=== PATIENT | female | born 1955 | race Caucasian/White ===

== ENCOUNTER 2020-04-30 10:41 | Outpatient (REF) | payer BC, SELFPAY ==
[2020-04-30 14:16] LABS: Hematocrit 42.5 % (37-47); Hemoglobin 13.5 g/dl (12.0-16.0); Mean Corpuscular HGB Conc 31.8 g/dl (31.0-35.0); Mean Corpuscular Hemoglobin 30.2 pg (27.0-33.0); Mean Corpuscular Volume 95.1 fL (80-98); Mean Platelet Volume 9.6 fL (9.4-12.3); Platelet Count 380 X10*3/uL (160-400); Red Blood Count 4.47 X10*6/uL (4.20-5.50); Red Cell Distribution Width 13.2 % (11.0-16.0); White Blood Count 6.7 X10*3/uL (4.8-10.8)
[2020-04-30 14:27] LABS: Glucose Urine UA NEG (NEG); Leukocyte Esterase Urine NEG (NEG); Nitrite Urine NEG (NEG); Specific Gravity - Urine <= 1.005 (1.005-1.025); Urine Blood NEG (NEG); Urine Ketones NEG (NEG); Urine Protein NEG (NEG-TRACE)
[2020-04-30 14:32] LABS: Appearance Urine CLEAR; Color Urine STRAW
[2020-04-30 14:37] LABS: RBC Urine 0-2 /HPF (0); Squamous Epithelial Cell Urine 1+ /LPF; WBC Urine 0-2 /HPF (0-4)
[2020-04-30 14:53] LABS: Alanine Aminotransferase 20 U/L (0-31); Albumin Level 4.8 g/dL (3.5-5.0); Alkaline Phosphatase 76 U/L (39-117); Anion Gap 16 (12-20); Aspartate Amino Transferase 24 U/L (5-31); Bilirubin Total 0.3 mg/dL (0.0-1.0); Blood Urea Nitrogen 15 mg/dL (9-16); Calcium 9.4 mg/dL (8.4-10.2); Carbon Dioxide 24 mmol/L (22-29); Chloride 106 mmol/L (96-108); Cholesterol 211 mg/dL; Estimated Glomerular Filt Rate > 60; Glucose Fasting 96 mg/dL (60-99); HDL Cholesterol 78 mg/dL; LDL Cholesterol Calculated 115 mg/dl; Potassium 5.3 mmol/l (3.3-5.1); Sodium 141 mmol/L (135-145); Total Protein 7.5 g/dL (6.5-8.0); Triglycerides 93 mg/dL
[2020-04-30 14:57] LABS: Thyroid Stimulating Hormone 1.09 uIU/mL (0.32-4.0)
== END 2020-04-30 10:42 | disposition home or self-care (01) ==
LOC: HO.HMGCLDS 10:41
PROVIDERS: PCP Internal Medicine; Visit Provider Internal Medicine
DX: E78.5 Hyperlipidemia, unspecified (principal); I10 Essential (primary) hypertension; Z00.00 Encounter for general adult medical examination without abnormal findings
CPT/HCPCS: 36415; 80053; 80061; 81001; 84443; 85027

== ENCOUNTER 2020-05-01 | Outpatient (REF) | payer BC, SELFPAY | END 2020-05-01 00:01 | disposition home or self-care (01) | LOC: HO.HMGCLNP | PROVIDERS: PCP Internal Medicine; Visit Provider Internal Medicine | DX: Z00.00 Encounter for general adult medical examination without abnormal findings (principal); I10 Essential (primary) hypertension; E78.5 Hyperlipidemia, unspecified; R10.9 Unspecified abdominal pain | CPT/HCPCS: 87338 ==

== ENCOUNTER 2020-05-14 09:45 | Outpatient (REF) | payer BC, SELFPAY ==
[2020-05-14 12:07] LABS: Anion Gap 18 (12-20); Blood Urea Nitrogen 22 mg/dL (9-16); Calcium 9.5 mg/dL (8.4-10.2); Carbon Dioxide 23 mmol/L (22-29); Chloride 104 mmol/L (96-108); Estimated Glomerular Filt Rate > 60; Glucose Random 100 mg/dL (60-115); Potassium 5.4 mmol/l (3.3-5.1); Sodium 140 mmol/L (135-145)
== END 2020-05-14 09:46 | disposition home or self-care (01) ==
LOC: HO.HMGCLDS 09:45
PROVIDERS: PCP Internal Medicine; Visit Provider Internal Medicine
DX: I10 Essential (primary) hypertension (principal)
CPT/HCPCS: 36415; 80048

== ENCOUNTER 2020-05-19 09:22 | Outpatient (REF) | payer BC, SELFPAY ==
--- NOTE | 2020-05-19 09:26 | US_ITS ---
EXAMINATION: US ABDOMEN COMPLETE CLINICAL INFORMATION: Abdominal pain. COMPARISON: None TECHNIQUE: Real-time imaging of the abdominal viscera. FINDINGS: PANCREAS: Normal. ABDOMINAL AORTA: The proximal, mid, and distal segments are normal in caliber. INFERIOR VENA CAVA: Visualized portions are normal. LIVER: The liver is normal in size. The liver contour is normal. Parenchymal echogenicity is normal. No focal hepatic lesion. There is no intrahepatic biliary duct dilatation seen. There are 2 complex cyst in the left lobe measuring 1.6 x 1.1 x 1.5 cm and 1.7 x 1.5 x 1.7 cm. GALLBLADDER: The gallbladder is physiologically distended without evidence of stones, sludge, polyps, wall thickening or pericholecystic fluid. There are multiple echogenic gallstones with wall thickness of 0.2 cm. COMMON BILE DUCT: Normal in caliber measuring 0.3 cm in diameter. RIGHT KIDNEY: Normal. No hydronephrosis. No renal calculi or focal parenchymal lesions. The kidney measures 10.1 cm in maximum dimension. LEFT KIDNEY: Normal. No hydronephrosis. No renal calculi or focal parenchymal lesions. The kidney measures 9.4 cm in maximum dimension. SPLEEN: Normal. The spleen measures 7.0 cm in maximum dimension. FREE FLUID: None. US/US abdomen complete IMPRESSION: There are 2 complex cysts in the left hepatic lobe. Multiple echogenic gallstones.
== END 2020-05-19 09:23 | disposition home or self-care (01) ==
LOC: HO.US 09:22
PROVIDERS: Visit Provider Internal Medicine
DX: R10.9 Unspecified abdominal pain (principal)
CPT/HCPCS: 76700

== ENCOUNTER → 2020-06-12 13:43 | Outpatient (BNVA) | payer BC, SELFPAY | PROVIDERS: PCP Internal Medicine; Visit Provider Surgery ==

== ENCOUNTER 2020-07-01 10:53 | Day surgery (SDC) | payer BC, SELFPAY ==
[2020-06-25 14:46] VITALS: BMI 25.3
--- NOTE | 2020-06-30 12:28 | HO.ANESPROP2 ---
Documented by User: Lianne Gunn 06/30/20 12:35 HPI - Anesthesia Eval Consult details Narrative: 64yo F for Cholecystectomy Laparoscopic PMFSH Active Problems Active Problems: All Active Problems (Updated 06/25/20 @ 14:46 by Rosita Betancur) Essential hypertension (Acute) Annual physical exam (Acute) Gallstones (Acute) Normal colonoscopy (Acute) Normal Pap smear (Acute) Hyperlipidemia (Acute) Abdominal pain (Acute) Past Medical History Medical History Abdominal pain Endometriosis Gallstones HTN (hypertension) Hx of diagnostic mammography Hx of ectopic Hyperlipidemia Normal colonoscopy Normal Pap smear Family History Family History Father Colon cancer Surgical History Surgical History H/O colonoscopy History of appendectomy Social History Social History Are you a primary resident care director to a significant other at home: No Do you presently have visiting nurse or other home services: No Alcohol intake: current Alcohol intake frequency: other Smoking Status: Never smoker Use of substances other than those prescribed or required for medical reasons: No Advance Directives: No Advance Directives Information Provided: No Advance Directives on File: No Recently lost weight without trying: No Meds Allergies Allergy/AdvReac Type Severity Reaction Status Date / Time latex Allergy Unknown Swelling Verified 06/25/20 14:41 Home Medications Medication Instructions Recorded Confirmed Last Taken Type cholecalciferol (vitamin D3) 25 mcg PO DAILY 06/25/20 06/25/20 Unknown History [Vitamin D3] vitamin B complex [B Complex] 1 cap PO DAILY 06/25/20 06/25/20 Unknown History Exam Exam Date and Time: June 30, 2020 1228 Height,Weight and Vital Signs: Height 5 ft 1 in Weight 60.781 kg Pertinent Lab Results Pertinent Lab Results: Laboratory Tests 04/30/20 05/14/20 10:50 10:00 WBC 6.7 Hgb 13.5 Hct 42.5 Plt Count 380 Sodium 140 Potassium 5.4 H Chloride 104 Carbon Dioxide 23 BUN 22 H Creatinine 0.75 Assessment and Plan Assessment Anesthesia Assessment: Chart Reviewed Documented by User: Tracy Murphy 07/01/20 11:29 PMFSH Past Medical History Medical History Abdominal pain Endometriosis Gallstones HTN (hypertension) Hx of diagnostic mammography Hx of ectopic Hyperlipidemia Normal colonoscopy Normal Pap smear Family History Family History Father Colon cancer Surgical History Surgical History H/O colonoscopy History of appendectomy Social History Social History Are you a primary resident care director to a significant other at home: No Do you presently have visiting nurse or other home services: No Alcohol intake: current Alcohol intake frequency: other Smoking Status: Never smoker Use of substances other than those prescribed or required for medical reasons: No Advance Directives: No Advance Directives Information Provided: No Advance Directives on File: No Recently lost weight without trying: No Meds Allergies Allergy/AdvReac Type Severity Reaction Status Date / Time latex Allergy Unknown Swelling Verified 06/25/20 14:41 Home Medications Medication Instructions Recorded Confirmed Last Taken Type cholecalciferol (vitamin D3) 25 mcg PO DAILY 06/25/20 06/25/20 Unknown History [Vitamin D3] vitamin B complex [B Complex] 1 cap PO DAILY 06/25/20 06/25/20 Unknown History Exam Airway Mallampati Class: II TM Dist: >3cm Neck ROM: Full Assessment and Plan Assessment Anesthesia Assessment: Anesthesia Plan Discussed and Chart Reviewed Final Anesthetic Review NPO: Yes ASA Class: II Final Preanesthetic Review: No Changes in Pt Med Stat, Meds/Allgs Chart Reviewed, Consent Obtained/Reviewed and Anes Risks/Benef Reviewed Patient Risk: Low Procedure Risk: Low Assessment/Block/Sedation in SS: Assess/Block/Sedation-SS Anesthetic Plan Anesthetic Plan: GA Disposition: Standard PACU
[2020-07-01] VITALS (7 sets, daily range): BP systolic 120–176; BP diastolic 41–80; PULSE 55–84; RESP 16–20; TEMP 36.4–36.6; O2SAT 97–100
[2020-07-01] MEDS: Acetaminophen 325 MG TABLET 650 MG PO (11:07)
--- NOTE | 2020-07-01 11:21 | MHC.SHP ---
Pre-Procedural Eval Section B Chief Complaint: Gallstones Allergies: Allergies Allergy/AdvReac Type Severity Reaction Status Date / Time latex Allergy Unknown Swelling Verified 06/25/20 14:41 Plan I have reviewed the history and physical and performed a pertinent physical examination on my patient. No changes have occurred unless specified.
[2020-07-01] MEDS: Lactated Ringers 1,000 ML 100 ML IVCONT (11:22)
--- NOTE | 2020-07-01 13:11 | W.PM.OPN ---
Operative Note Operative Note Date of Service: 07/01/20 Narrative: Preop Diagnosis: Gallstones, symptomatic Postop diagnosis: Gallstones, symptomatic, with chronic cholecystitis Procedure: Laparoscopic cholecystectomy Surgeon: Vega Cage MD dental office assistant: NATALIE Fairbanks The patient is a 64-year-old female with periodic right upper quadrant pain. She had an ultrasound showing gallstones. In view of her symptoms that were highly suggestive of gallbladder disease, I explained to her the option of proceeding with cholecystectomy. I explained the technique of laparoscopic cholecystectomy and possible open cholecystectomy. I reviewed the risks including but not limited to bleeding, infections, injury to the bowel, injury to liver and the bile duct, bile leak, as well as the benefits and alternatives. She understood and had given consent. She was brought to the operating room and placed supine on table under general anesthesia via endotracheal tube. A surgical time-out was done. The patient received Cefotan 2 g IV preoperatively. The abdomen is prepped and draped in the usual sterile fashion. A short supraumbilical incision was made on the skin using a blade 15 with care down to the full-thickness of the skin and subcutaneous fat with blunt dissection using Kameron clamps. The fascia was seen. The fascia was then incised and the peritoneum was entered. We placed the Bigg port through this incision. However we could not achieve visualization with the camera nor insufflation. I removed the port and examined the area of the incision and had noted significant adhesions with omentum. The patient had a long lower midline incision all the way to the umbilicus from a previous ectopic so this had apparently caused all these adhesions. I proceeded to bluntly and gently dissect the adhesions towards the superior aspect using my index finger. I was then able to insert the Bigg port without difficulty. Were able to insufflate and this time we had good visualization of the upper abdomen. I inserted a 5/12 mm port in the epigastric area below the subcostal margin through a small incision. 5 mm ports where introduced through small incisions below the subcostal margin along the anterior axillary line and the midclavicular line. Graspers were placed through these working ports. The patient was placed in head-up and [id number] position. Were able to visualize the gallbladder. The gallbladder did not appear acutely inflamed. I was able to apply a grasper at the fundus and this was used to retract the gallbladder cephalad. There was note of some thick adhesions in the anterior wall of the gallbladder which we had to carefully lyse with the [place] dissector as well as with scissors. These were all suggestive of chronic cholecystitis. We had to clear up this anterior wall with careful dissection. Once we had achieved good exposure of the entire anterior wall, we were able to apply another grasper towards the pouch of the gallbladder. This was used to retract the gallbladder laterally. At this point therefore the gallbladder was being retracted in a lateral and cephalad fashion to put the area of the cystic duct on stretch. I carefully dissected the area of the cystic duct using the [place] dissector until I was able to clearly define the cystic duct. The cystic artery was seen running parallel to this and posteriorly. I carefully defined the cystic duct and until its confluence with the neck of the gallbladder was confirmed. I applied clips with 2 clips being applied distally. The cystic duct was transected between clips using Endo scissors. I carefully define the cystic artery as well and applied clips with 2 clips being applied distally. The cystic artery was transected between clips using Endo scissors as well. I then carefully dissected the rest of the hilum to make sure that there were no other tubular structures in the area. I then made an incision on the peritoneum of the gallbladder using the electrocautery spatula and proceeded to define a plane of dissection between the gallbladder wall and the liver bed. I the gallbladder wall from the liver bed along this plane of dissection using a combination of electrocautery as well as blunt dissection with the tip of the spatula. I continued to separate the gallbladder from the liver bed. There were areas in the gallbladder which was densely adherent likely from previous inflammation; we created a tear on the gallbladder wall in this area. We were however able to continue the rest of the dissection and separation of the gallbladder wall from the liver bed until the entire gallbladder was completely . The gallbladder was retrieved through an endobag through the umbilical incision. We reinserted all ports and re-insufflated. I examined the entire abdominal cavity. There was note of adhesions in the lower abdomen with omentum. The subhepatic space was examined carefully. There was no evidence of any bleeding or any bile leak. We obviously irrigated and suctioned out the irrigant fluid. Once hemostasis was confirmed, I proceeded to desufflate through the port sites. We removed all ports after desufflation. I closed the fascia of the umbilical incision with a [id number] Dexon 0 stitch. Skin closure was achieved on all incisions using Dexon 4-0 subcuticular sutures. Steri-Strips and dressings were applied. All incisions were infiltrated with Marcaine 0.5% for postop analgesia. The patient tolerated the procedure well. The were no immediate complications noted. Initial and final counts of sponges and instruments were correct. Estimated blood loss about 25 cc. The patient was extubated without difficulty and transferred to the recovery room with stable vital signs.
--- NOTE | 2020-07-01 13:15 | P.BOP_ITS ---
Brief Operative Note Date of Service: 07/01/20 <MOMO Fry Last Filed: 07/01/20 13:16> Pre-op diagnosis: gallstones <MOMO Fry Last Filed: 07/01/20 13:16> Post-op diagnosis: same (chronic cholecystitis) <MOMO Fry Last Filed: 07/01/20 13:16> Procedure: laparoscopic cholecystectomy <MOMO Fry Last Filed: 07/01/20 13:16> Surgeon: VERNON SANDHU MD <MOMO Fry Last Filed: 07/01/20 13:16> Anesthesia: GETA <MOMO Fry Last Filed: 07/01/20 13:16> Behavioral Health Counselor: Audelia Fairbanks <MOMO Fry Last Filed: 07/01/20 13:16> Estimated blood loss (mL): 10 <MOMO Fry Last Filed: 07/01/20 13:16> Pathology: other (gallbladder) <MOMO Fry Last Filed: 07/01/20 13:16> Condition: stable <MOMO Fry Last Filed: 07/01/20 13:16> Disposition: PACU <MOMO Fry Last Filed: 07/01/20 13:16>
[2020-07-01] MEDS: oxyCODONE HCl Immed Release 5 MG TABLET PO (13:50)
== END 2020-07-01 14:40 | disposition home or self-care (01) ==
PROVIDERS: PCP Internal Medicine; Visit Provider Surgery
PROC: 0FT44ZZ Resection of Gallbladder, Percutaneous Endoscopic Approach (ICD-10-PCS; CPT 47562; principal; 2020-07-01 13:20)
DX: K80.10 Calculus of gallbladder with chronic cholecystitis without obstruction (principal); K82.8 Other specified diseases of gallbladder; K66.0 Peritoneal adhesions (postprocedural) (postinfection); I10 Essential (primary) hypertension; N80.9 Endometriosis, unspecified; Z79.899 Other long term (current) drug therapy; Z80.0 Family history of malignant neoplasm of digestive organs; Z91.040 Latex allergy status
CPT/HCPCS: 47562; 88304; J1100; J1885; J2250; J2405; J3010

== ENCOUNTER → 2020-07-16 11:14 | Outpatient (BNVA) | payer BC, SELFPAY | PROVIDERS: PCP Internal Medicine; Visit Provider Surgery ==

== ENCOUNTER 2021-05-18 08:18 | Outpatient (REF) | payer BC, SELFPAY ==
[2021-05-18 12:33] LABS: Alanine Aminotransferase 30 U/L (0-31); Albumin Level 4.8 g/dL (3.5-5.0); Alkaline Phosphatase 58 U/L (39-117); Anion Gap 11 (12-20); Aspartate Amino Transferase 27 U/L (5-31); Bilirubin Total 0.4 mg/dL (0.0-1.0); Blood Urea Nitrogen 18 mg/dL (9-16); Calcium 10.1 mg/dL (8.4-10.2); Carbon Dioxide 28 mmol/L (22-29); Chloride 107 mmol/L (96-108); Cholesterol 233 mg/dL; Estimated Glomerular Filt Rate > 60; Glucose Fasting 103 mg/dL (60-99); HDL Cholesterol 88 mg/dL; LDL Cholesterol Calculated 121 mg/dl; Sodium 141 mmol/L (135-145); Total Protein 7.5 g/dL (6.5-8.0); Triglycerides 124 mg/dL
[2021-05-18 12:51] LABS: TSH reflex Free T4 2.01 uIU/mL (0.32-4.0); Vitamin D 25-OH Total 48.1 ng/mL (>30)
== END 2021-05-18 08:19 | disposition home or self-care (01) ==
LOC: HO.HMGCLDS 08:18
PROVIDERS: PCP Internal Medicine; Visit Provider Internal Medicine
DX: Z00.00 Encounter for general adult medical examination without abnormal findings (principal); E55.9 Vitamin D deficiency, unspecified; I10 Essential (primary) hypertension
CPT/HCPCS: 36415; 80053; 80061; 82306; 84443

== ENCOUNTER → 2023-03-15 08:53 | Outpatient (AMB) | payer MEDICARE, SELFPAY ==
--- NOTE | 2023-03-15 08:54 | A.OFFVIS_ITS ---
Intake Vital Signs 03/15/23 08:55 Height 5 ft 1.8 in Weight 140 lb BMI 25.8 BP 122/62 Blood Pressure Location Lt brachial Position Sitting Pulse 63 Pulse Source Pulse Oximeter Pulse Oximetry (%) 97 Oxygen Delivery Method Room Air Intake Visit Reasons: AWV Intake Note: Pt is here today for AWV. Allergies latex Allergy (Unknown, Verified 03/15/23 08:58) Swelling Medication List - Last Reconciled 03/15/23 by Kiki Cash MD cholecalciferol (vitamin D3) (Vitamin D3) 25 mcg PO DAILY ibuprofen 600 mg PO Q6H PRN lisinopril 5 mg PO DAILY pravastatin 20 mg PO DAILY vitamin B complex 1 cap PO DAILY HPI AWV HPI Details Pt presents for annual. Initiated the conversation about Advanced Directives. Advanced Directives help? patients prepare for current and future decisions about their medical treatment? and place of care. Discussed with patient that it is a process where a patients? current condition and prognosis are reviewed, their wishes for information? regarding their illness are elicite d, and likely medical dilemmas are presented? and options discussed. The form can be amended as needed, reviewed yearly and? make changes as needed IPPE/AWV ? year old presents? for her ? Annual? Wellness Visit, initial visit.? Medical / Social History Reviewed? Past Medical History ?Yes? . ? [place]? of Care / Care Team list updated ?Yes . ? Surgical/Hospitalization? History ?Yes . ? Current Medications? (including OTC and supplements) ?Yes . ? Family History ?Yes? . ? Tobacco? Control form ?Yes . ? AUDIT-C (Alcohol use) form? ?Yes . ? Illicit drug use in Social? History ?Yes . ? Current diagnosis of? depression? ?No ? Appropriate PHQ2/PHQ9? completed ?Yes . ? Data entered by ?Medical? Parish Worker and reviewed by provider ? Fall Risk ? Fall? History? Have you had any falls with? injury in the past year? ?No . ? Have you had two or more? falls in the past year? ?No . ? Fall Risk Assessment: ?No? falls in the past year . ? HRA filled out by? the patient, reviewed by Provider and scanned. ? IPPE/AWV ? Balance? [place]? ?Yes . ? Tandem? walk ?Yes . ? Walk and? Turn ?Yes . ? Rise from? sit to stand ?Yes . ?Vision? Corrective? lens ?Yes ? Vision? screen ? Up-to-date, has an appointment [] for vision? screening and glaucoma screening ?Hearing? Whisper? test ?pass .? Initiated the conversation about Advanced Directives. Advanced Directives help? patients prepare for current and future decisions about their medical treatment? and place of care. Discussed with patient that it is a process where a patients? current condition and prognosis are reviewed, their wishes for info rmation? regarding their illness are elicited, and likely medical dilemmas are presented? and options discussed. The form can be amended as needed, reviewed yearly and? make changes as needed Written? Plan?Completed. See Patient? Documents. [facility] Medical History (Updated 03/15/23 @ 09:15 by Kiki Cash MD) Vitamin D deficiency Hx of ectopic Gallstones Normal colonoscopy Normal Pap smear Abdominal pain Hx of diagnostic mammography Endometriosis Hyperlipidemia HTN (hypertension) Surgical History History of appendectomy H/O colonoscopy Family History Father Colon cancer Social History Housing: House Are you a primary direct support professional caregiver to a significant other at home: No Do you presently have visiting nurse or other home services: No Alcohol intake: current Alcohol intake frequency: other Patient Tobacco Use Status: Never used Tobacco e-Cigarette/Vaping Use: Never Used Current occupational status: employed Questionnaire Medicare Wellness Checkup [age] What gender do you identify with?: female During the past 4 weeks, how much have you been bothered by emotional problems such as feeling anxious, depressed, irritable, sad or downhearted, and blue?: not at all During the past 4 weeks, has your physical & emotional health limited your social activities with family, friends, neighbors, or groups?: not at all During the past 4 weeks, how much bodily pain have you generally had?: very mild pain During the past 4 weeks, was someone available to help you if you needed & wanted help?: yes, as much as I wanted During the past 4 weeks, what was the hardest physical activity you could do for at least 2 minutes?: heavy Can you get to places out of walking distance without help? (For eg., can you travel alone on buses, taxis or drive your car?): Yes Can you go shopping for groceries or clothes without someone's help?: Yes Can you prepare your own meals?: Yes Can you do your housework without help?: Yes Because of any health problems, do you need the help of another person with your personal care needs such as eating, bathing, dressing or getting around the house?: No Can you handle your own money without help?: Yes During the past 4 weeks, how would you rate your health in general?: good During the past 4 weeks how have things been going for you?: very well; could hardly better Are you having difficulties driving your car?: no Do you always fasten your seat belt when you are in a car?: yes, usually During past 4 weeks, have you been bothered by the following: never: Falling or dizzy when standing up, Sexual problems?, Trouble eating well?, Teeth or denture problems?, Problems using the telephone? and Tiredness or fatigue? Have you fallen 2 or more times in the past year?: No Are you afraid of falling?: No Are you a smoker?: no During the past 4 weeks, how many drinks of wine, beer, or other alcoholic beverages did you have?: 6-9 drinks per week Do you exercise for about 20 minutes 3 or more times a week?: yes, some of the time Have you been given information to help with the following?: yes: Hazards in your house that might hurt you? and yes: Keeping track of your medications? How often do you have trouble taking medicines the way you have been told to take them?: I always take medicine as prescribed How confident are you that you can control & manage most of your health problems?: very confident What is your race?: White Mini Mental State Exam (MMSE) Orientation What is the (year) (season) (date) (day) (month)?: year, season, date, day and month Where are we (state) (county) (town or city) (hospital) (floor)?: state, county, town or city, hospital/clinic and floor Registration Name of 3 unrelated objects clearly and slowly, then ask patient to repeat all 3 of them. (1st repeat determines score. Make sure they can repeat all three): object 1, object 2 and object 3 Attention & Calculation (CHOOSE ONE) Ask pt to begin with 100 & count backward by 7. Stop after 5 repeats. If pt cannot ask them to spell the word WORLD backward.: 93 Spell WORLD backwards (DLROW): 5 letters Recall Ask patient to repeat the 3 items from question #3.: object 1, object 2 and object 3 Language Show patient a wristwatch & ask what it is. Repeat for pencil.: watch and pencil Ask the patient to repeat the phrase 'No ifs, ands, or buts' after you.: correct Ask the patient to 'take a piece of paper with their right hand' 'fold paper in half' 'place paper on floor': take paper in right hand, fold paper in half and place paper on floor Print the sentence 'CLOSE YOUR EYES' on a piece. If patient actually closes eyes then score.: followed written direction Give patient a blank piece of paper & ask to write a sentence. Score if it contains a noun & verb.: sentence contains subject and verb Ask patient to copy figure of intersecting pentagons exactly. Score if all 10 angles & 2 intersects are included.: all 10 angles present & 2 are intersected Score Score: 31 Activity of Daily Living Bathing - sponge bath, tub bath or shower: receives no assistance (gets in/out by self, if usual bathing means Dressing - getting clothes from closets & drawers, including inner/outer garments & fasteners.: gets clothes & gets completely dressed without help Toileting - going to the 'toilet room' for urine/bowel elimination & cleaning self/arranging clothes: goes to toilet room, cleans self, arranges clothes without help Transfer: moves in & out of bed and chair without help (may use support object) Continence: controls urination/bowel movements completely by self Feeding: feeds self without help Total Score: 0 Information obtained from: patient Using telephone: independent Traveling: independent Shopping: independent Preparing meals: independent Housework: independent Taking medicine: independent Managing money: independent PHQ-9 Over the last 2 weeks, how often have you been bothered by any of the following problems? 1. Little interest or pleasure in doing things: not at all 2. Feeling down, depressed, or hopeless: not at all 3. Trouble falling or staying asleep, or sleeping too much: nearly every day 4. Feeling tired or having little energy: not at all 5. Poor appetite or overeating: not at all 6. Feeling bad about yourself - or that you are a failure or have let yourself or your family down: not at all 7. Trouble concentrating on things, such as reading the newspaper or watching television: not at all 8. Moving or speaking so slowly that other people could have noticed. Or the opposite - being so fidgety or restless that you have been moving around a lot more than usual: not at all 9. Thoughts that you would be better off or of hurting yourself in some way: not at all Total score: 3 Depression Screening Interpretation: Negative Depression Screening Done: Yes Source: Developed by Drs. Alok Guo, Adela Fleming, Kenneth Prescott and colleagues, with an educational donal from [employer]. Review of Systems Const All systems reviewed & are unremarkable except as noted in HPI and below Reports no additional complaints Eyes Reports no additional complaints ENT Reports no additional complaints Card Reports no additional complaints Resp Reports no additional complaints GI Reports no additional complaints Reports no additional complaints Musc Reports no additional complaints Physical Exam Vital Signs: Last Vital Signs Pulse 63 03/15/23 08:55 BP 122/62 03/15/23 08:55 Pulse Ox 97 03/15/23 08:55 Oxygen Delivery Method Room Air 03/15/23 08:55 BMI result Body Mass Index 25.8 Const General: no acute distress HEENT Head: Yes normal to inspection Ears: hearing grossly normal bilaterally Eyes General: appearance normal, both eyes and all related structures Neck Neck: Yes supple Resp Effort & Inspection: normal respiratory effort Auscultation: clear to auscultation bilaterally Cardio Rhythm: regular rhythm Heart sounds: S1 normal heart sound present and S2 normal heart sound present GI Inspection: Yes normal to inspection Palpation (GI): Soft to palpation Percussion: Yes normal to percussion Auscultation: normal bowel sounds Extrem General: Yes no clubbing, cyanosis or edema Immunizations pneumoc 20-alexi conj-dip cr(PF) 0.5 mL IM syringe Performing Provider: Kiki Cash MD Performing Location: [facility] [place] [facility] Administered by: DEVAN Diehl on 03/15/23 09:38 Dose Route Admin Location Dispensed Lot Number Expiration Date [facility] Plastic Machine Operator 0.5 mL IM Left Deltoid 0.5 mL [id number] 01/07/24 0255-5678-41 WYETH/PFIZER VIS Given Date VIS Provided VIS Publication Date 03/15/23 Single Vaccine 21 Eligibility Eligibility Date Funding Source Not VFC Eligible 03/15/23 Private Assessment & Plan Assessment & Plan (1) Normal colonoscopy: Comment: Dr.Vallejo 2017 , ?EGD 2017, normal (2) Essential hypertension: Code(s): I10 - Essential (primary) hypertension Plan: Continue lisinopril (3) Annual physical exam: Code(s): Z00.00 - Encounter for general adult medical examination without abnormal findings Plan: Well-balanced diet regular physical activity discussed with the patient. She is up-to-date with the mammogram. Patient will schedule DEXA in [place]. Physical in 1 year (4) Hyperlipidemia: Code(s): E78.5 - Hyperlipidemia, unspecified Plan: Continue statin check lipid profile today (5) Postmenopausal: Code(s): Z78.0 - Asymptomatic menopausal state Plan: Check DEXA Orders: Orders Comprehensive [place]. Panel Fast Today E55.9 - Vitamin D deficiency, unspecified, E78.5 - Hyperlipidemia, unspecified, I10 - Essential (primary) hypertension, Z00.00 - Encounter for general adult medical examination without abnormal findings Complete Blood Count Auto Diff Today E55.9 - Vitamin D deficiency, unspecified, E78.5 - Hyperlipidemia, unspecified, I10 - Essential (primary) hypertension, Z00.00 - Encounter for general adult medical examination without abnormal findings Lipid Panel Today E55.9 - Vitamin D deficiency, unspecified, E78.5 - Hyperlip idemia, unspecified, I10 - Essential (primary) hypertension, Z00.00 - Encounter for general adult medical examination without abnormal findings Vitamin D 25-OH Total Today E55.9 - Vitamin D deficiency, unspecified, E78.5 - Hyperlipidemia, unspecified, I10 - Essential (primary) hypertension, Z00.00 - Encounter for general adult medical examination without abnormal findings XR DEXA axial skeleton Today Z78.0 - Asymptomatic menopausal state Pneumococcal 20 Immunization Today Z23 - Encounter for immunization TSH reflex Free T4 Today E55.9 - Vitamin D deficiency, unspecified, E78.5 - Hyperlipidemia, unspecified, I10 - Essential (primary) hypertension, Z00.00 - Encounter for general adult medical examination without abnormal findings Quality Reporting (2019) Depression/Bipolar (159/160/161/177) PHQ-9: Total score: 3 Coding Level of Care Code Medicare Subsequent (G0439) Diagnoses Normal colonoscopy Essential hypertension I10 Annual physical exam Z00.00 Hyperlipidemia E78.5 Postmenopausal Z78.0 CPT Codes Advance Care Planning - Time spent: 1-15 minutes, not on file ([id number]) Advance Care Planning Advance Care Planning discussion: Exists, not on file Forms completed: Health Care Proxy Time spent: 1-15 minutes, not on file
[2023-03-15 08:55] VITALS: BP 122/62; PULSE 63; O2SAT 97; BMI 25.8
== END ==
PROVIDERS: PCP Internal Medicine; Visit Provider Internal Medicine
DX: Z00.00 Encounter for general adult medical examination without abnormal findings (principal); I10 Essential (primary) hypertension; E78.5 Hyperlipidemia, unspecified; Z78.0 Asymptomatic menopausal state; Z23 Encounter for immunization
CPT/HCPCS: 1124F; 90471; 90677; G0402; G0439

== ENCOUNTER 2023-03-15 09:35 | Outpatient (REF) | payer MEDICARE, SELFPAY ==
[2023-03-15 11:21] LABS: MANUAL DIFF FLAG NO
[2023-03-15 11:36] LABS: Basophils Percent Auto 0.4 % (0-2); Eosinophils Absolute Auto 0.3 X10*3/uL (0.0-0.4); Eosinophils Percent Auto 5.1 % (0-4); Hematocrit 42.6 % (37.0-47.0); Hemoglobin 13.7 g/dl (12.0-16.0); Imm Gran Abs Auto 0.02 X10*3/uL (0.00-0.03); Imm Gran Pct Auto 0.4 % (0.0-0.4); Lymphocytes Absolute Auto 1.9 X10*3/uL (1.2-4.9); Lymphocytes Percent Auto 35.3 % (20-40); Mean Corpuscular HGB Conc 32.2 g/dl (31.0-35.0); Mean Corpuscular Hemoglobin 30.2 pg (27.0-33.0); Mean Corpuscular Volume 93.8 fL (80.0-98.0); Mean Platelet Volume 9.3 fL (9.4-12.3); Monocytes Absolute Auto 0.5 X10*3/uL (0.1-1.2); Monocytes Percent Auto 9.4 % (2-11); Neutrophils Absolute Auto 2.6 x10*3/uL (2.0-8.3); Neutrophils Percent Auto 49.4 % (45-73); Platelet Count 317 X10*3/uL (160-400); Red Blood Count 4.54 X10*6/uL (4.20-5.50); Red Cell Distribution Width 13.2 % (11.0-16.0); White Blood Count 5.3 X10*3/uL (4.8-10.8)
[2023-03-15 12:06] LABS: Alanine Aminotransferase 34 U/L (0-31); Albumin Level 4.7 g/dL (3.5-5.0); Alkaline Phosphatase 72 U/L (39-117); Anion Gap 13 (12-20); Aspartate Amino Transferase 30 U/L (5-31); Bilirubin Total 0.4 mg/dL (0.0-1.0); Blood Urea Nitrogen 18 mg/dL (9-16); Calcium 9.9 mg/dL (8.4-10.2); Carbon Dioxide 27 mmol/L (22-29); Chloride 107 mmol/L (96-108); Cholesterol 247 mg/dL (<200); Estimated Glomerular Filt Rate > 60; Glucose Fasting 97 mg/dL (60-99); HDL Cholesterol 78 mg/dL (>40); LDL Cholesterol Calculated 147 mg/dL (<100); Potassium 4.2 mmol/L (3.3-5.1); Sodium 143 mmol/L (135-145); Total Protein 7.7 g/dL (6.5-8.0); Triglycerides 111 mg/dL (<150)
[2023-03-15 12:27] LABS: TSH reflex Free T4 1.17 uIU/mL (0.32-4.0); Vitamin D 25-OH Total 45.6 ng/mL (>30)
== END 2023-03-15 09:36 | disposition home or self-care (01) ==
LOC: HO.HMGCLDS 09:35
PROVIDERS: PCP Internal Medicine; Visit Provider Internal Medicine
DX: Z00.00 Encounter for general adult medical examination without abnormal findings (principal); I10 Essential (primary) hypertension; E55.9 Vitamin D deficiency, unspecified; E78.5 Hyperlipidemia, unspecified
CPT/HCPCS: 36415; 80053; 80061; 82306; 84443; 85025

== ENCOUNTER 2024-02-15 10:55 | Outpatient (AMB) | payer MEDICARE, SELFPAY ==
--- NOTE | 2024-02-15 11:03 | MHC.PC.OV ---
Vital Signs 02/15/24 11:05 Height 5 ft 1.8 in Weight 138 lb BMI 25.4 BP 132/70 Blood Pressure Location Lt brachial Position Sitting Pulse 68 Pulse Source Pulse Oximeter Pulse Oximetry (%) 99 Oxygen Delivery Method Room Air Intake Visit Reasons: Diarreah & abdominal pain Intake Note: Pt is here today for a sick visit. Pt c/o diarrhea and abdominal pain.Pt also noticed blood in her stool. Pt states that she came back from [place] a week ago. Allergies latex Allergy (Unknown, Verified 02/15/24 11:09) Swelling Medication List - Last Reconciled 02/15/24 by Kiki Cash MD cholecalciferol (vitamin D3) (Vitamin D3) 25 mcg PO DAILY ibuprofen 600 mg PO Q6H PRN lisinopril 5 mg PO DAILY pravastatin 20 mg PO DAILY sulfamethoxazole-trimethoprim 800-160 mg (Bactrim DS) 1 tab PO BID vitamin B complex 1 cap PO DAILY Tobacco use date assessed: 02/15/24 Fall risk assessment: No Falls in past year Last assessed Fall Risk: 02/15/24 Dental Screening Dental Screen Date: 02/15/24 Did you have a dental visit in the last 12 months?: Yes Did you have a dental problem in the last 6 months where you did not have access to dental care?: No Was dental information given to patient?: Patient has dentist HPI Diarreah & abdominal pain HPI Details Pt c/o nausea vomiting and watery diarrhea for 3 days after she returned from a trip to [place]. The last watery bowel movement was 3 days ago. has been eating regular food but reports intermittent cramping pain in the left lower quadrant. She denies fever chills and recurrent nausea vomiting. [facility] Medical History Vitamin D deficiency Hx of ectopic Gallstones Normal colonoscopy Normal Pap smear Abdominal pain Hx of diagnostic mammography Endometriosis Hyperlipidemia HTN (hypertension) Surgical History History of appendectomy H/O colonoscopy Family History Father Colon cancer Social History Housing: House Are you a primary care analyst to a significant other at home: No Do you presently have visiting nurse or other home services: No Alcohol intake: current Alcohol intake frequency: other Patient Tobacco Use Status: Never used Tobacco e-Cigarette/Vaping Use: Never Used service: No Current occupational status: retired Cognitive needs: No Hearing needs: No Vision needs: Yes Questionnaire PHQ-9 Over the last 2 weeks, how often have you been bothered by any of the following problems? 1. Little interest or pleasure in doing things: not at all 2. Feeling down, depressed, or hopeless: not at all 3. Trouble falling or staying asleep, or sleeping too much: not at all 4. Feeling tired or having little energy: not at all 5. Poor appetite or overeating: not at all 6. Feeling bad about yourself - or that you are a failure or have let yourself or your family down: not at all 7. Trouble concentrating on things, such as reading the newspaper or watching television: not at all 8. Moving or speaking so slowly that other people could have noticed. Or the opposite - being so fidgety or restless that you have been moving around a lot more than usual: not at all 9. Thoughts that you would be better off or of hurting yourself in some way: not at all Total score: 0 Depression Screening Interpretation: Negative Depression Screening Done: Yes 73198 - PHQ-9 Billing: Yes Source: Developed by Drs. Alok Guo, Adela Fleming, Kenneth Prescott and colleagues, with an educational donal from [employer]. Thrive Questionnaire Date Thrive assessed: 02/15/24 I am a: Patient What is your living situation today?: I have a steady place to live Within the past 12 months, did the food you bought not last and you didn't have the money to get more?: Never true Within the past 12 months, did you worry whether your food would run out before you got money to buy more?: Never true Do you have trouble paying for medicines?: No Do you have trouble getting transportation to medical appointments?: No Do you have trouble paying your heating and electricity bill?: No Do you have trouble taking care of your child, family member or friend?: No Do you have trouble with day-to-day activities such as bathing, preparing meals, shopping, managing finances, etc.?: No Are you currently unemployed and looking for a job?: No Are you interested in more education?: No Please select the resources that you would like help with: None THRIVE Score: 0 AUDIT C Alcohol Use Questionnaire (AUDIT-C) 1. How often do you have a drink containing alcohol?: Never 3. How often do you have six or more drinks on one occasion?: Never Total Score: 0 KE-7 AMB Questionnaire KE-7 Date KE - 7 assessed: 02/15/24 Feeling nervous, anxious, or on edge: 0 = Not at all Not being able to stop or control worryin = Not at all Worrying too much about different things: 0 = Not at all Trouble relaxin = Not at all Being so restless that it is hard to sit still: 0 = Not at all Becoming easily annoyed or irritable: 0 = Not at all Feeling afraid as if something awful might happen: 0 = Not at all Total KE-7 score (0-4 normal; 5-9 mild; 10-14 moderate; 15-21 severe): 0 Source: Developed by Drs. Alok Guo, Adela Fleming, Kenneth Prescott and colleagues, with an educational donal from [employer]. KE-7 Assessment Billing KE-7 Assessment Tool: KE-7 Assessment 16567 Review of Systems Const All systems reviewed & are unremarkable except as noted in HPI and below Card Reports no additional complaints Resp Reports no additional complaints GI Reports no additional complaints Physical exam (Primary Care) Vital Signs: Last Vital Signs Pulse 68 02/15/24 11:05 BP 132/70 02/15/24 11:05 Pulse Ox 99 02/15/24 11:05 Oxygen Delivery Method Room Air 02/15/24 11:05 BMI result Body Mass Index 25.4 Tobacco/Smoking Status: Tobacco use Status Tobacco use date assessed 02/15/24 02/15/24 11:12 Patient Tobacco Use Status Never used Tobacco 02/15/24 11:12 e-Cigarette/Vaping Use Never Used 02/15/24 11:04 PHQ-9: PHQ-9 Score PHQ-9: Total score 0 02/15/24 11:12 Depression Screening Interpretation: Negative Thrive Assessment: Date of Thrive Assessment Date Thrive assessed 02/15/24 02/15/24 11:12 Const General: no acute distress Eyes General: appearance normal, both eyes and all related structures Resp Effort & Inspection: normal respiratory effort Auscultation: clear to auscultation bilaterally Cardio Rhythm: regular rhythm Heart sounds: S1 normal heart sound present and S2 normal heart sound present GI Inspection: Yes normal to inspection Palpation (GI): Soft to palpation and Tenderness to palpation present (GI) in the LLQ; with no rebound tenderness Percussion: Yes normal to percussion Auscultation: normal bowel sounds Coding Level of Care Code Est Pt Level 3 (12784) Diagnoses Diarrhea R19.7 Additional Codes KE-7 Assessment Billing - KE-7 Assessment Tool: KE-7 Assessment 40506 ([id number]) Assessment & Plan Assessment & Plan (1) Diarrhea: Code(s): R19.7 - Diarrhea, unspecified Category: Medical Plan: for acute traveler's diarrhea Bactrim DS b.i.d. for 5 days is prescribed and supportive care discussed with the patient Medications: New sulfamethoxazole-trimethoprim 800-160 mg (Bactrim DS) 1 tab PO BID 10 tabs 0RF sulfamethoxazole-trimethoprim 800-160 mg (Bactrim DS) 1 tab PO BID 10 tabs 0RF Refilled pravastatin 20 mg PO DAILY 90 tabs 3RF lisinopril 5 mg PO DAILY 90 tabs 3RF
[2024-02-15 11:05] VITALS: BP 132/70; PULSE 68; O2SAT 99; BMI 25.4
== END 2024-02-15 12:12 | disposition home or self-care (01) ==
LOC: HO.HMCC 10:55
PROVIDERS: PCP Internal Medicine; Visit Provider Internal Medicine
DX: R19.7 Diarrhea, unspecified (principal)

== ENCOUNTER → 2024-02-15 10:55 | Outpatient (BNVA) | payer MEDICARE, SELFPAY | PROVIDERS: PCP Internal Medicine; Visit Provider Internal Medicine | DX: R19.7 Diarrhea, unspecified (principal) | CPT/HCPCS: 96127; 99212 ==

== ENCOUNTER 2024-03-19 08:56 | Outpatient (REF) | payer MEDICARE, SELFPAY ==
[2024-03-19 13:14] LABS: MANUAL DIFF FLAG NO
[2024-03-19 13:26] LABS: Basophils Percent Auto 0.4 % (0-2); Eosinophils Absolute Auto 0.2 X10*3/uL (0.0-0.4); Eosinophils Percent Auto 1.6 % (0-4); Hematocrit 38.6 % (37.0-47.0); Hemoglobin 12.4 g/dl (12.0-16.0); Imm Gran Abs Auto 0.05 X10*3/uL (0.00-0.03); Imm Gran Pct Auto 0.5 % (0.0-0.4); Lymphocytes Percent Auto 19.7 % (20-40); Mean Corpuscular HGB Conc 32.1 g/dl (31.0-35.0); Mean Corpuscular Hemoglobin 30.4 pg (27.0-33.0); Mean Corpuscular Volume 94.6 fL (80.0-98.0); Mean Platelet Volume 8.7 fL (9.4-12.3); Monocytes Absolute Auto 0.8 X10*3/uL (0.1-1.2); Monocytes Percent Auto 7.4 % (2-11); Neutrophils Absolute Auto 7.3 x10*3/uL (2.0-8.3); Neutrophils Percent Auto 70.4 % (45-73); Platelet Count 407 X10*3/uL (160-400); Red Blood Count 4.08 X10*6/uL (4.20-5.50); Red Cell Distribution Width 13.1 % (11.0-16.0); White Blood Count 10.3 X10*3/uL (4.8-10.8)
[2024-03-19 13:53] LABS: Alanine Aminotransferase 35 U/L (0-31); Albumin Level 4.2 g/dL (3.5-5.0); Alkaline Phosphatase 154 U/L (39-117); Anion Gap 13 (12-20); Aspartate Amino Transferase 31 U/L (5-31); Bilirubin Total 0.3 mg/dL (0.0-1.0); Blood Urea Nitrogen 12 mg/dL (9-16); Calcium 9.6 mg/dL (8.4-10.2); Carbon Dioxide 25 mmol/L (22-29); Chloride 107 mmol/L (96-108); Cholesterol 153 mg/dL (<200); Estimated Glomerular Filt Rate > 60; Glucose Fasting 95 mg/dL (60-99); HDL Cholesterol 46 mg/dL (>40); LDL Cholesterol Calculated 90 mg/dL (<100); Potassium 4.5 mmol/L (3.3-5.1); Sodium 140 mmol/L (135-145); Total Protein 7.6 g/dL (6.5-8.0); Triglycerides 89 mg/dL (<150)
[2024-03-19 14:10] LABS: TSH reflex Free T4 0.81 uIU/mL (0.32-4.0)
== END 2024-03-19 08:57 | disposition home or self-care (01) ==
LOC: HO.HMGCLDS 08:56
PROVIDERS: PCP Internal Medicine; Visit Provider Internal Medicine
DX: Z00.00 Encounter for general adult medical examination without abnormal findings (principal); E78.5 Hyperlipidemia, unspecified; J06.9 Acute upper respiratory infection, unspecified; Z79.899 Other long term (current) drug therapy
CPT/HCPCS: 36415; 80053; 80061; 84443; 85025; 96127

== ENCOUNTER 2024-03-19 08:56 | Outpatient (AMB) | payer MEDICARE, SELFPAY ==
[2024-03-19 08:59] VITALS: BP 126/70; PULSE 76; O2SAT 98; BMI 24.3
--- NOTE | 2024-03-19 08:59 | A.OFFVIS_ITS ---
Intake Vital Signs 03/19/24 08:59 Height 5 ft 1.8 in Weight 132 lb BMI 24.3 BP 126/70 Blood Pressure Location Lt brachial Position Sitting Pulse 76 Pulse Source Pulse Oximeter Pulse Oximetry (%) 98 Oxygen Delivery Method Room Air Intake Visit Reasons: SWV [id number] Allergies latex Allergy (Unknown, Verified 03/19/24 09:02) Swelling Medication List - Last Reconciled 03/19/24 by Kiki Cash MD azithromycin 250 mg PO DAILY cholecalciferol (vitamin D3) (Vitamin D3) 25 mcg PO DAILY ibuprofen 600 mg PO Q6H PRN lisinopril 5 mg PO DAILY pravastatin 20 mg PO DAILY vitamin B complex 1 cap PO DAILY HPI SWV G0439 HPI Details Pt c/o L ear fullness and, decreased hearing, congestion, dry cough for 1 week. Pt has been taking Z bg for 3 days.Initiated the conversation about Advanced Directives. Advanced Directives help? patients prepare for current and future decisions about their medical treatment? and place of care. Discussed with patient that it is a process where a patients? current condition and prognosis are reviewed, their wishes for information? regarding their illness are elicited, and likely medical dilemmas are presented? and options discussed. The form can be amended as needed, reviewed yearly and? make changes as needed IPPE/AWV ? year old presents? for her ? Annual? Wellness Visit, initial visit.? Medical / Social History Reviewed? Past Medical History ?Yes? . ? [place]? of Care / Care Team list updated ?Yes . ? Surgical/Hospitalization? History ?Yes . ? Current Medications? (including OTC and supplements) ?Yes . ? Family History ?Yes? . ? Tobacco? Control form ?Yes . ? AUDIT-C (Alcohol use) form? ?Yes . ? Illicit drug use in Social? History ?Yes . ? Current diagnosis of? depression? ?No ? Appropriate PHQ2/PHQ9? completed ?Yes . ? Data entered by ?Medical? Director Of Web Marketing and reviewed by provider ? Fall Risk ? Fall? History? Have you had any falls with? injury in the past year? ?No . ? Have you had two or more? falls in the past year? ?No . ? Fall Risk Assessment: ?No? falls in the past year . ? HRA filled out by? the patient, reviewed by Provider and scanned. ? IPPE/AWV ? Balance? [place]? ?Yes . ? Tandem? walk ?Yes . ? Walk and? Turn ?Yes . ? Rise from? sit to stand ?Yes . ?Vision? Corrective? lens ?Yes ? Vision? screen ? Up-to-date, has an appointment [] for vision? screening and glaucoma screening ?Hearing? Whisper? test ?pass .? Initiated the conversation about Advanced Directives. Advanced Directives help? patients prepare for current and future decisions about their medical treatment? and place of care. Discussed with patient that it is a process where a patients? current condition and prognosis are reviewed, their wishes for information? regarding their illness are elicited, and likely medical dilemmas are presented? and options discussed. The form can be amended as needed, reviewed yearly and? make changes as needed Written? Plan?Completed. See Patient? Documents. [facility] Medical History Vitamin D deficiency Hx of ectopic Gallstones Normal colonoscopy Normal Pap smear Abdominal pain Hx of diagnostic mammography Endometriosis Hyperlipidemia HTN (hypertension) Surgical History History of appendectomy H/O colonoscopy Family History Father Colon cancer Social History Housing: House Are you a primary careers counsellor to a significant other at home: No Do you presently have visiting nurse or other home services: No Alcohol intake: current Alcohol intake frequency: other Patient Tobacco Use Status: Never used Tobacco e-Cigarette/Vaping Use: Never Used service: No Current occupational status: retired Cognitive needs: No Hearing needs: No Vision needs: Yes Questionnaire Medicare Wellness Checkup [age] What gender do you identify with?: female During the past 4 weeks, how much have you been bothered by emotional problems such as feeling anxious, depressed, irritable, sad or downhearted, and blue?: not at all During the past 4 weeks, has your physical & emotional health limited your social activities with family, friends, neighbors, or groups?: not at all During the past 4 weeks, how much bodily pain have you generally had?: no pain During the past 4 weeks, was someone available to help you if you needed & wanted help?: yes, as much as I wanted During the past 4 weeks, what was the hardest physical activity you could do for at least 2 minutes?: very heavy Can you get to places out of walking distance without help? (For eg., can you travel alone on buses, taxis or drive your car?): Yes Can you go shopping for groceries or clothes without someone's help?: Yes Can you prepare your own meals?: Yes Can you do your housework without help?: Yes Because of any health problems, do you need the help of another person with your personal care needs such as eating, bathing, dressing or getting around the house?: No Can you handle your own money without help?: Yes During the past 4 weeks, how would you rate your health in general?: excellent During the past 4 weeks how have things been going for you?: very well; could hardly better Are you having difficulties driving your car?: no Do you always fasten your seat belt when you are in a car?: yes, usually During past 4 weeks, have you been bothered by the following: never: Falling or dizzy when standing up, Sexual problems?, Trouble eating well?, Teeth or denture problems?, Problems using the telephone? and Tiredness or fatigue? Have you fallen 2 or more times in the past year?: No Are you afraid of falling?: No Are you a smoker?: no During the past 4 weeks, how many drinks of wine, beer, or other alcoholic beverages did you have?: no alcohol at all Do you exercise for about 20 minutes 3 or more times a week?: no, I usually do not exercise this much Have you been given information to help with the following?: yes: Hazards in your house that might hurt you? and yes: Keeping track of your medications? How often do you have trouble taking medicines the way you have been told to t arie them?: I always take medicine as prescribed How confident are you that you can control & manage most of your health problems?: very confident What is your race?: White Mini Mental State Exam (MMSE) Orientation What is the (year) (season) (date) (day) (month)?: year, season, date, day and month Where are we (state) (county) (town or city) (hospital) (floor)?: state, county, town or city and hospital/clinic Registration Name of 3 unrelated objects clearly and slowly, then ask patient to repeat all 3 of them. (1st repeat determines score. Make sure they can repeat all three): object 1, object 2 and object 3 Attention & Calculation (CHOOSE ONE) Ask pt to begin with 100 & count backward by 7. Stop after 5 repeats. If pt cannot ask them to spell the word WORLD backward.: 93 Spell WORLD backwards (DLROW): 5 letters Recall Ask patient to repeat the 3 items from question #3.: object 1, object 2 and object 3 Language Show patient a wristwatch & ask what it is. Repeat for pencil.: watch and pencil Ask the patient to repeat the phrase 'No ifs, ands, or buts' after you.: correct Ask the patient to 'take a piece of paper with their right hand' 'fold paper in half' 'place paper on floor': take paper in right hand, fold paper in half and place paper on floor Print the sentence 'CLOSE YOUR EYES' on a piece. If patient actually closes eyes then score.: followed written direction Give patient a blank piece of paper & ask to write a sentence. Score if it contains a noun & verb.: sentence contains subject and verb Ask patient to copy figure of intersecting pentagons exactly. Score if all 10 angles & 2 intersects are included.: all 10 angles present & 2 are intersected Score Score: 30 PHQ-9 Over the last 2 weeks, how often have you been bothered by any of the following problems? 1. Little interest or pleasure in doing things: not at all 2. Feeling down, depressed, or hopeless: not at all 3. Trouble falling or staying asleep, or sleeping too much: not at all 4. Feeling tired or having little energy: not at all 5. Poor appetite or overeating: not at all 6. Feeling bad about yourself - or that you are a failure or have let yourself or your family down: not at all 7. Trouble concentrating on things, such as reading the newspaper or watching television: not at all 8. Moving or speaking so slowly that other people could have noticed. Or the opposite - being so fidgety or restless that you have been moving around a lot more than usual: not at all 9. Thoughts that you would be better off or of hurting yourself in some way: not at all Total score: 0 Depression Screening Interpretation: Negative Depression Screening Done: Yes 71019 - PHQ-9 Billing: Yes Source: Developed by Drs. Alok Guo, Adela Fleming, Kenneth Prescott and colleagues, with an educational donal from [employer]. Review of Systems Const All systems reviewed & are unremarkable except as noted in HPI and below Eyes Reports no additional complaints ENT Reports no additional complaints Card Reports no additional complaints Resp Reports no additional complaints GI Reports no additional complaints Reports no additional complaints Physical Exam Vital Signs: Last Vital Signs Pulse 76 03/19/24 08:59 BP 126/70 03/19/24 08:59 Pulse Ox 98 03/19/24 08:59 Oxygen Delivery Method Room Air 03/19/24 08:59 BMI result Body Mass Index 24.3 Const General: no acute distress HEENT Head: Yes normal to inspection Ears: TM's normal bilaterally General nose exam: Normal external nose present Face and sinus: Yes normal facial exam Throat: Yes postnasal drainage Eyes General: appearance normal, both eyes and all related structures Neck Neck: Yes no lymphadenopathy and Yes supple Resp Effort & Inspection: normal respiratory effort Auscultation: clear to auscultation bilaterally Cardio Rhythm: regular rhythm Heart sounds: S1 normal heart sound present and S2 normal heart sound present GI Inspection: Yes normal to inspection Palpation (GI): Soft to palpation Percussion: Yes normal to percussion Auscultation: normal bowel sounds Extrem General: Yes no clubbing, cyanosis or edema Assessment & Plan Assessment & Plan (1) Annual physical exam: Code(s): Z00.00 - Encounter for general adult medical examination without abnormal findings Plan: Well-balanced diet regular physical activity discussed with the patient she will have a fasting blood work today. She is up-to-date with mammogram colonoscopy and had normal DEXA last year (2) Hyperlipidemia: Code(s): E78.5 - Hyperlipidemia, unspecified Plan: Continue statin low-cholesterol diet return in 1 year for physical (3) URI (upper respiratory infection): Code(s): J06.9 - Acute upper respiratory infection, unspecified Plan: Continue Z-Bg and supportive care Orders: Orders Lipid Panel Today E78.5 - Hyperlipidemia, unspecified, Z00.00 - Encounter for general adult medical examination without abnormal findings MM screening mammo BI Today E78.5 - Hyperlipidemia, unspecified, Z00.00 - Encounter for general adult medical examination without abnormal findings, Z12.31 - Encounter for screening mammogram for malignant neoplasm of breast Comprehensive [place]. Panel Fast Today E78.5 - Hyperlipidemia, unspecified, Z00.00 - Encounter for general adult medical examination without abnormal findings Complete Blood Count Auto Diff Today E78.5 - Hyperlipidemia, unspecified, Z00.00 - Encounter for general adult medical examination without abnormal findings TSH reflex Free T4 Today E78.5 - Hyperlipidemia, unspecified, Z00.00 - Encounter for general adult medical examination without abnormal findings Comprehensive [place]. Panel Fast 1 Year E78.5 - Hyperlipidemia, unspecified, I10 - Essential (primary) hypertension Complete Blood Count Auto Diff 1 Year E78.5 - Hyperlipidemia, unspecified, I10 - Essential (primary) hypertension Lipid Panel 1 Year E78.5 - Hyperlipidemia, unspecified, I10 - Essential (primary) hypertension Quality Reporting (2019) Depression/Bipolar (159/160/161/177) PHQ-9: Total score: 0 Coding Level of Care Code Medicare Subsequent (G0439) Diagnoses Annual physical exam Z00.00 Hyperlipidemia E78.5 URI (upper respiratory infection) J06.9 CPT Codes Advance Care Planning - Advance Care Planning discussion: On file, no changes ([id number]) Advance Care Planning - Time spent: 1-15 minutes, on File ([id number]) Additional Codes PHQ-9 - 50934 - PHQ-9 Billing: Yes ([id number]) Advance Care Planning Advance Care Planning discussion: On file, no changes Forms completed: Health Care Proxy Time spent: 1-15 minutes, on File Did not discuss due to Cultural/Spiritual beliefs: Yes
== END 2024-03-19 12:22 | disposition home or self-care (01) ==
PROVIDERS: PCP Internal Medicine; Visit Provider Internal Medicine
DX: Z00.00 Encounter for general adult medical examination without abnormal findings (principal); E78.5 Hyperlipidemia, unspecified; J06.9 Acute upper respiratory infection, unspecified

== ENCOUNTER 2024-04-27 09:52 | Outpatient (REF) | payer MEDICARE, SELFPAY ==
[2024-04-27 13:55] LABS: Albumin Level 4.3 g/dL (3.5-5.0); Alkaline Phosphatase 77 U/L (39-117); Aspartate Amino Transferase 33 U/L (5-31); Bilirubin Direct 0.1 mg/dL (0.0-0.5); Bilirubin Total 0.3 mg/dL (0.0-1.0); Total Protein 7.1 g/dL (6.5-8.0)
[2024-04-27 14:08] LABS: Alanine Aminotransferase 28 U/L (0-31)
[2024-04-28 04:49] LABS: HBc Num1 0.12 S/CO (0.00-0.79); HBsAGNum1 0.38 S/CO (0.00-0.99); Hepatitis B Core Antibody Nonreactive (Nonreactive); Hepatitis B Surface Antigen Negative (Negative); ~HepC Num1 0.04 S/CO (0.00-0.79); ~Hepatitis B Surface Antibody NONREACTIVE (Nonreactive); ~Hepatitis C Antibody Nonreactive (Nonreactive)
== END 2024-04-27 09:53 | disposition home or self-care (01) ==
LOC: HO.HMGCLDS 09:52
PROVIDERS: PCP Internal Medicine; Visit Provider Internal Medicine
DX: R79.89 Other specified abnormal findings of blood chemistry (principal)
CPT/HCPCS: 36415; 80076; 86704; 86706; 86803; 87340

== ENCOUNTER 2024-08-31 11:00 | Outpatient (AMB) | payer MEDICARE, SELFPAY ==
--- NOTE | 2024-08-31 11:18 | MHC.PC.OV ---
Vital Signs 08/31/24 11:19 Height 5 ft 1.8 in Weight 140 lb BMI 25.8 BP 124/72 Blood Pressure Location Lt brachial Position Sitting Respiration 18 Pulse 64 Pulse Source Pulse Oximeter Temp 97.6 F Temp Source Oral Pulse Oximetry (%) 98 Oxygen Delivery Method Room Air Intake Visit Reasons: Abdominal Pain Follow - Up Intake Note: Pt is here today for a follow up visit on abdominal pain. Allergies latex Allergy (Unknown, Verified 08/31/24 11:23) Swelling Medication List - Last Reconciled 08/31/24 by Kiki Cash MD cholecalciferol (vitamin D3) (Vitamin D3) 25 mcg PO DAILY dicyclomine 10 mg PO BID ibuprofen 600 mg PO Q6H PRN lisinopril 5 mg PO DAILY pravastatin 20 mg PO DAILY vitamin B complex 1 cap PO DAILY Tobacco use date assessed: 08/31/24 Fall risk assessment: No Falls in past year Last assessed Fall Risk: 08/31/24 Dental Screening Dental Screen Date: 08/31/24 Did you have a dental visit in the last 12 months?: Yes Did you have a dental problem in the last 6 months where you did not have access to dental care?: No Was dental information given to patient?: Patient has dentist HPI Abdominal Pain Follow - Up HPI Details Pt presents c/o mid and left lower quadrant abd pain worse after eating increase bloating occasionally nausea getting worse over last week. Patient denies fever chills hematochezia melena constipation diarrhea dysuria PFSH Medical History Vitamin D deficiency Hx of ectopic Gallstones Normal colonoscopy Normal Pap smear Abdominal pain Hx of diagnostic mammography Endometriosis Hyperlipidemia HTN (hypertension) Surgical History History of appendectomy H/O colonoscopy Family History Father Colon cancer Social History Housing: House Are you a primary healthcare economics manager to a significant other at home: No Do you presently have visiting nurse or other home services: No Alcohol intake: current Alcohol intake frequency: other Patient Tobacco Use Status: Never used Tobacco e-Cigarette/Vaping Use: Never Used service: No Current occupational status: retired Cognitive needs: No Hearing needs: No Vision needs: Yes Questionnaire PHQ-9 Over the last 2 weeks, how often have you been bothered by any of the following problems? 1. Little interest or pleasure in doing things: not at all 2. Feeling down, depressed, or hopeless: not at all 3. Trouble falling or staying asleep, or sleeping too much: not at all 4. Feeling tired or having little energy: not at all 5. Poor appetite or overeating: several days 6. Feeling bad about yourself - or that you are a failure or have let yourself or your family down: not at all 7. Trouble concentrating on things, such as reading the newspaper or watching television: not at all 8. Moving or speaking so slowly that other people could have noticed. Or the opposite - being so fidgety or restless that you have been moving around a lot more than usual: not at all 9. Thoughts that you would be better off or of hurting yourself in some way: not at all Total score: 1 Depression Screening Interpretation: Negative Depression Screening Done: Yes 44879 - PHQ-9 Billing: Yes Source: Developed by Drs. Alok Guo, Adela Fleming, Kenneth Prescott and colleagues, with an educational donal from [employer]. Thrive Questionnaire Date Thrive assessed: 08/31/24 I am a: Patient What is your living situation today?: I choose not to answer this question Within the past 12 months, did the food you bought not last and you didn't have the money to get more?: I choose not to answer this question Within the past 12 months, did you worry whether your food would run out before you got money to buy more?: I choose not to answer this question Do you have trouble paying for medicines?: No Do you have trouble getting transportation to medical appointments?: No Do you have trouble paying your heating and electricity bill?: No Do you have trouble taking care of your child, family member or friend?: No Do you have trouble with day-to-day activities such as bathing, preparing meals, shopping, managing finances, etc.?: No Are you currently unemployed and looking for a job?: No Are you interested in more education?: No Please select the resources that you would like help with: None THRIVE Score: 0 KE-7 AMB Questionnaire KE-7 Date KE - 7 assessed: 08/31/24 Feeling nervous, anxious, or on edge: 0 = Not at all Not being able to stop or control worryin = Not at all Worrying too much about different things: 0 = Not at all Trouble relaxin = Not at all Being so restless that it is hard to sit still: 0 = Not at all Becoming easily annoyed or irritable: 0 = Not at all Feeling afraid as if something awful might happen: 0 = Not at all Total KE-7 score (0-4 normal; 5-9 mild; 10-14 moderate; 15-21 severe): 0 Source: Developed by Drs. Alok Guo, Adela Fleming, Kenneth Prescott and colleagues, with an educational donal from [employer]. KE-7 Assessment Billing KE-7 Assessment Tool: KE-7 Assessment 94454 Review of Systems Const All systems reviewed & are unremarkable except as noted in HPI and below Eyes Reports no additional complaints ENT Reports no additional complaints Card Reports no additional complaints Resp Reports no additional complaints GI Reports no additional complaints Reports no additional complaints Physical exam (Primary Care) Vital Signs: Last Vital Signs Temp 97.6 F 08/31/24 11:19 Pulse 64 08/31/24 11:19 Resp 18 08/31/24 11:19 BP 124/72 08/31/24 11:19 Pulse Ox 98 08/31/24 11:19 Oxygen Delivery Method Room Air 08/31/24 11:19 BMI result Body Mass Index 25.8 Tobacco/Smoking Status: Tobacco use Status Tobacco use date assessed 08/31/24 08/31/24 11:26 Patient Tobacco Use Status Never used Tobacco 08/31/24 11:26 e-Cigarette/Vaping Use Never Used 08/31/24 11:20 PHQ-9: PHQ-9 Score PHQ-9: Total score 1 08/31/24 11:27 Depression Screening Interpretation: Negative Thrive Assessment: Date of Thrive Assessment Date Thrive assessed 08/31/24 08/31/24 11:20 Const General: no acute distress HENMT Head: Yes normal to inspection Eyes General: appearance normal, both eyes and all related structures Resp Effort & Inspection: normal respiratory effort Auscultation: clear to auscultation bilaterally Cardio Rhythm: regular rhythm Heart sounds: S1 normal heart sound present and S2 normal heart sound present GI Inspection: Yes normal to inspection Palpation (GI): Soft to palpation and Tenderness to palpation present (GI) in the LLQ; with no rebound tenderness Percussion: Yes normal to percussion Auscultation: normal bowel sounds Coding Level of Care Code Est Pt Level 3 (49608) Diagnoses Abdominal pain R10.9 Additional Codes KE-7 Assessment Billing - KE-7 Assessment Tool: KE-7 Assessment 25182 ([id number]) PHQ-9 - 19430 - PHQ-9 Billing: Yes ([id number]) Assessment & Plan Assessment & Plan (1) Abdominal pain: Code(s): R10.9 - Unspecified abdominal pain Category: Medical Plan: Obtain CT of the abdomen to rule out diverticulitis. Check comprehensive panel CBC and UA. 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 Vallejo to schedule colonoscopy. Dicyclomine will be tried Orders: Orders Complete Blood Count Auto Diff Today R10.9 - Unspecified abdominal pain UA w Microscopic Today R10.9 - Unspecified abdominal pain CT abdomen pelvis w IV con Today K57.92 - Diverticulitis of intestine, part unspecified, without perforation or abscess without bleeding, R10.9 - Unspecified abdominal pain Comprehensive [place]. Panel Fast Today R10.9 - Unspecified abdominal pain Referrals Gastroenterology Referral Z00.00 - Encounter for general adult medical examination without abnormal findings Medications: New dicyclomine 10 mg PO BID 60 caps 1RF
[2024-08-31 11:19] VITALS: BP 124/72; PULSE 64; RESP 18; TEMP 36.4; O2SAT 98; BMI 25.8
--- OUTSIDE RECORDS SUMMARY | 2024-08-31 11:47 | XMS_ITS | Clinical Summary ---
Author Organization [facility] Address [address] [place] [address] Care Team Providers Care Plant Puller Name Role Phone Kiki Cash MD Primary Care Provider [phone] Allergies No known active allergies Immunizations Name Administration Dates Next Due Covid-19 (Pfizer) Dilution Required 08/29/2020,0 08/08/2020 Family History Medical History Relation Name Comments Colon cancer Father Colon cancer Other NEPHEW\MATERNAL BRCA 1/2 Neg Hx Breast cancer Neg Hx Cancer Neg Hx Endometrial cancer Neg Hx Ovarian cancer Neg Hx Relation Name Status Comments Father Other Social History Tobacco Use Types Packs/Day Years Used Date Smoking Tobacco: Never Assessed Sex and Gender Information Value Date Recorded Sex Assigned at Female 08/29/2020 11:01 AM EDT Gender Identity Not on file Sexual Orientation Not on file Job Start Date Occupation Industry Not on file Not on file Not on file Plan of Treatment Health Maintenance Due Date Last Done Comments Hepatitis C Screening 1956 Depression Screening 1968 Preventative Health Evaluation 1974 DTap / Tdap / Td (1 - Tdap) 11/08/1975 Colon Cancer Screening (Colonoscopy) 2001 Shingrix-Zoster Vaccine (1 of 2) 2006 Fall Risk Assessment 2021 Pneumococcal Vaccine (1 of 1 - PCV) 2021 COVID-19 Vaccine ( season) 2024 08/29/2020, 08/08/2020 Influenza Vaccine (#1) 2024 Osteoporosis Screening (DEXA Scan) 04/18/2025 04/18/2023 Breast Cancer Screening (Mammogram) 12/22/2025 12/23/2023, 12/09/2022, 11/20/2021, Additional history exists RSV Adult > 60+ Yrs or (1 - 1-dose 75+ series) 11/08/2031 Hepatitis B Vaccines Aged Out No long er eligible based on patient's age to complete this topic RSV Ped < 20 months Aged Out No longe r eligible based on patient's age to complete this topic Care Teams Plant Puller Relationship Specialty Start Date End Date Kiki Cash MD [address] [place] [address] PCP - General Cracking Still Operator 08/18/17
== END 2024-08-31 13:16 | disposition home or self-care (01) ==
LOC: HO.HMCC 11:01
PROVIDERS: PCP Internal Medicine; Visit Provider Internal Medicine
DX: R10.9 Unspecified abdominal pain (principal)

== ENCOUNTER 2024-08-31 11:00 | Outpatient (REF) | payer MEDICARE, SELFPAY ==
--- OUTSIDE RECORDS SUMMARY | 2024-08-31 12:55 | XMS_ITS | Clinical Summary ---
Author Organization [facility] Address [address] [place] [address] Care Team Providers Care Tone Artist Apprentice Name Role Phone Kiki Cash MD Primary Care Provider [phone] Allergies No known active allergies Immunizations Name [...] age to complete this topic Care Teams Tone Artist Apprentice Relationship Specialty Start Date End Date Kiki Cash MD [address] [place] [address] PCP - General Locomotive Lubricating Systems Clerk 08/18/17
[2024-08-31 13:16] LABS: Appearance Urine Clear; Color Urine Yellow; Glucose Urine UA Negative (Negative); Leukocyte Esterase Urine Moderate (2+) (Negative); Nitrite Urine Negative (Negative); Specific Gravity - Urine <= 1.005 (1.005-1.025); UMIC TRIGGER UA YES; Urine Blood Negative (Negative); Urine Ketones Negative (Negative); Urine Protein Negative (Neg-Trace)
[2024-08-31 13:27] LABS: MANUAL DIFF FLAG NO
[2024-08-31 13:33] LABS: Basophils Percent Auto 0.4 % (0-2); Eosinophils Absolute Auto 0.3 X10*3/uL (0.0-0.4); Eosinophils Percent Auto 5.1 % (0-4); Hematocrit 42.1 % (37.0-47.0); Hemoglobin 14.1 g/dl (12.0-16.0); Imm Gran Abs Auto 0.01 X10*3/uL (0.00-0.03); Imm Gran Pct Auto 0.2 % (0.0-0.4); Lymphocytes Absolute Auto 2.3 X10*3/uL (1.2-4.9); Lymphocytes Percent Auto 43.5 % (20-40); Mean Corpuscular HGB Conc 33.5 g/dl (31.0-35.0); Mean Corpuscular Hemoglobin 30.6 pg (27.0-33.0); Mean Corpuscular Volume 91.3 fL (80.0-98.0); Mean Platelet Volume 9.5 fL (9.4-12.3); Monocytes Absolute Auto 0.5 X10*3/uL (0.1-1.2); Neutrophils Absolute Auto 2.2 x10*3/uL (2.0-8.3); Neutrophils Percent Auto 40.8 % (45-73); Platelet Count 283 X10*3/uL (160-400); Red Blood Count 4.61 X10*6/uL (4.20-5.50); Red Cell Distribution Width 13.6 % (11.0-16.0); White Blood Count 5.3 X10*3/uL (4.8-10.8)
[2024-08-31 13:38] LABS: Bacteria Urine None Seen (None Seen); Hyaline Casts Urine 0-2 /LPF (0-2); RBC Urine 0-2 /HPF (0-2); WBC Urine 0-5 /HPF (0-5)
[2024-08-31 13:52] LABS: Albumin Level 4.8 g/dL (3.5-5.0); Alkaline Phosphatase 68 U/L (39-117); Anion Gap 12 (12-20); Aspartate Amino Transferase 36 U/L (5-31); Bilirubin Total 0.5 mg/dL (0.0-1.0); Blood Urea Nitrogen 18 mg/dL (9-16); Carbon Dioxide 25 mmol/L (22-29); Chloride 106 mmol/L (96-108); Estimated Glomerular Filt Rate > 60; Glucose Fasting 100 mg/dL (60-99); Sodium 138 mmol/L (135-145); Total Protein 7.6 g/dL (6.5-8.0)
[2024-08-31 14:06] LABS: Alanine Aminotransferase 34 U/L (0-31)
== END 2024-08-31 11:01 | disposition home or self-care (01) ==
LOC: HO.HMGCLDS 11:00
PROVIDERS: PCP Internal Medicine; Visit Provider Internal Medicine
DX: R10.32 Left lower quadrant pain (principal)
CPT/HCPCS: 36415; 80053; 81001; 85025; 96127; 99212

== ENCOUNTER 2024-09-17 09:45 | Outpatient (REF) | payer MEDICARE, SELFPAY ==
--- OUTSIDE RECORDS SUMMARY | 2024-09-17 10:05 | XMS_ITS | Clinical Summary ---
Author Organization [facility] Address [address] [place] [address] Care Team Providers Care Sailor Name Role Phone Kiki Cash MD Primary Care Provider [phone] Allergies No known active allergies Immunizations Name [...] age to complete this topic Care Teams Sailor Relationship Specialty Start Date End Date Kiki Cash MD [address] [facility] [place] [address] PCP - General Building Certifier 08/18/17
[2024-09-17 13:10] LABS: Appearance Urine Clear; Color Urine Yellow; Glucose Urine UA Negative (Negative); Leukocyte Esterase Urine Moderate (2+) (Negative); Nitrite Urine Negative (Negative); PH 8.5 (5.0-9.0); Specific Gravity - Urine 1.015 (1.005-1.025); UMIC TRIGGER UA YES; Urine Blood Negative (Negative); Urine Ketones Negative (Negative); Urine Protein Negative (Neg-Trace)
[2024-09-17 13:12] LABS: Bacteria Urine None Seen (None Seen); Hyaline Casts Urine 0-2 /LPF (0-2); RBC Urine 0-2 /HPF (0-2)
== END 2024-09-17 09:46 | disposition home or self-care (01) ==
LOC: HO.HMGCLDS 09:45
PROVIDERS: PCP Internal Medicine; Visit Provider Internal Medicine
DX: R10.9 Unspecified abdominal pain (principal)
CPT/HCPCS: 81001; 87086

== ENCOUNTER 2024-09-20 10:54 | Outpatient (REF) | payer MEDICARE, SELFPAY ==
--- NOTE | ~2024-09-20 | CT_ITS ---
EXAMINATION: CT ABDOMEN PELVIS WITH IV CONTRAST HISTORY: R10.9 - Unspecified abdominal pain COMPARISON: Correlation is made with an abdominal ultrasound dated 05/19/2020. TECHNIQUE: CT scan of the abdomen and pelvis was performed following administration of 85 mL Omnipaque 350 using standard departmental protocol. The patient experienced a contrast extravasation after injection of approximately 21 mL of contrast requiring termination of the injection. Coronal and sagittal reformatted images were generated and reviewed. Oral contrast material was not administered at the request of the referring physician. This CT exam was performed with one or more of the following dose reduction techniques: automated exposure control, adjustment of the mA and/or kV according to patient size, use of iterative reconstruction technique. DLP: 442 mGy-cm FINDINGS: The examination is somewhat limited by reduced volume of the contrast bolus. LOWER CHEST: The visualized lung bases are clear. There is no pleural effusion. CARDIOVASCULATURE: The heart is normal in size. There is no pericardial effusion. LIVER: The liver is normal in size and contour. There is a bilobed cyst in the left lobe of the liver measuring approximately 2.5 cm in size. GALLBLADDER / BILE DUCTS: The gallbladder is unremarkable. There is no intra or extrahepatic biliary ductal dilatation. SPLEEN: The spleen is normal in size. No focal splenic lesion is identified. PANCREAS: The pancreas is unremarkable in appearance. ADRENAL GLANDS: Within normal limits. KIDNEYS/RETROPERITONEUM: No renal calculi are identified. There is no hydronephrosis. No renal masses are identified. LYMPH NODES: No abdominal or pelvic lymphadenopathy. VASCULATURE: The abdominal aorta demonstrates atherosclerotic calcification, but is normal in caliber. MESENTERY/PERITONEUM: No free fluid. No masses. There is no free intraperitoneal gas. STOMACH: The stomach is collapsed, limiting evaluation. SMALL BOWEL: The small bowel is normal in caliber. COLON: There is a large amount of stool throughout the colon. APPENDIX: The appendix is not seen, however no inflammatory changes are seen adjacent to the cecum. URINARY BLADDER/PELVIC ORGANS: The urinary bladder is collapsed, limiting evaluation. The uterus is unremarkable in appearance. BONES / SOFT TISSUES: No suspicious bony or soft tissue abnormalities. CT/CT abdomen pelvis w IV con IMPRESSION: Limited examination due to reduced volume of the contrast bolus secondary to extravasation. Large amount of stool throughout the colon. Electronically signed by: Alok Hawkins MD 09/20/2024 12:53 PM EDT RP
--- OUTSIDE RECORDS SUMMARY | 2024-09-20 12:03 | XMS_ITS | Clinical Summary ---
Author Organization [facility] Address [address] [place] [address] Care Team Providers Care Joint Terminal Attack Controller Name Role Phone Kiki Cash MD Primary Care Provider [phone] Allergies No known active allergies Immunizations Name [...] age to complete this topic Care Teams Joint Terminal Attack Controller Relationship Specialty Start Date End Date Kiki Cash MD [address] [facility] [place] [address] PCP - General Octave Board Assembler 08/18/17
--- OUTSIDE RECORDS SUMMARY | 2024-09-20 12:03 | XMS_ITS | Clinical Summary ---
Author Organization [facility] Address [address] [place] [address] Phone Care Team Providers Care Charging Board Operator Name Role Phone Kiki Cash MD Primary Care Provider [phone] Encounters Date Type Department Care Team Description 09/04/2024 Telephone Gastroenterology - [address] [phone] Kiki Vallejo MD INFORMATION NEEDED from Last 3 Months Family History Medical History Relation Name Comments Colon cancer Father Colon cancer Other NEPHEWMATERNAL BRCA 1/2 Neg Hx Breast cancer Neg Hx Cancer Neg Hx Endometrial cancer Neg Hx Ovarian cancer Neg Hx Relation Name Status Comments Father Other Social History Tobacco Use Types Packs/Day Years Used Date Smoking Tobacco: Never Assessed Comments Unknown Sex and Gender Information Value Date Recorded Sex Assigned at Not on file Legal Sex Female 10:53 AM EST Gender Identity Not on file Sexual Orientation Not on file Obstetrics History Plan of Treatment Upcoming Encounters Date Type Department Care Team (Late st Contact Info) Description 10/11/2024 2:10 PM EDT Consult Gastroenterology - [address] [phone] Matthew Torres PA [address] [id number] Health Maintenance Due Date Last Done Comments DTaP,Tdap,and Td Vaccines (1 - Tdap) 11/08/1975 Pneumococcal Vaccine: 50+ Years (1 of 1 - PCV) 2006 Zoster Vaccines (1 of 2) 2006 Depression Screening 04/06/2022 Falls Risk Assessment 04/06/2022 Hepatitis C Screening 04/06/2022 Medicare Annual Wellness Visit 04/06/2022 Social Influencers of Health Screening 04/06/2022 COVID-19 Vaccine ( season) 2024 08/29/2020, 08/08/2020 Influenza Vaccine (Season Ended) 2025 Breast Cancer Screening 12/22/2025 12/23/19, 12/09/2022, 11/20/2021, Additional history exists Colorectal Cancer Screening: Colonoscopy 10/26/2026 10/26/2016 RSV Immunization Adult Patients (1 - 1-dose 75+ series) 11/08/2031 Osteoporosis Screening (Bone Density Screening) 04/18/2033 04/18/2023 HIB Vaccines Aged Out No longer eligi ble based on patient's age to complete this topic HPV Vaccines Aged Out No longer eligi ble based on patient's age to complete this topic Hepatitis A Vaccines Aged Out No long er eligible based on patient's age to complete this topic Hepatitis B Vaccines Aged Out No long er eligible based on patient's age to complete this topic IPV Vaccines Aged Out No longer eligi ble based on patient's age to complete this topic MMR Vaccines Aged Out No longer eligi ble based on patient's age to complete this topic Meningococcal ACWY Vaccine Aged Out N o longer eligible based on patient's age to complete this topic Meningococcal B Vaccine Aged Out No l onger eligible based on patient's age to complete this topic RSV Immunization Patients Under 20 months Aged Out No longer eligible based on patient's age to complete this topic Varicella Vaccines Aged Out No longer eligible based on patient's age to complete this topic Procedures Procedure Name Priority Date/Time Associated Diagnosis Comments MAMMOGRAM SCREENING BILATERAL 3D ROBERTA WITH CAD Routine 12/23/2023 11:50 AM EDT Encounter for screening mammogram for malignant neoplasm of breast BONE DENSITY STUDY Routine 04/18/2023 10 :59 AM EST Encounter for screening for osteoporosis Asymptomatic menopausal state COLONOSCOPY Routine 10/26/2016 9:40 AM EDT from Last 3 Months or Most Recently Relevant to Health Maintenance Results * MAMMOGRAM SCREENING BILATERAL 3D ROBERTA WITH CAD (12/23/2023 11:50 AM EDT) Anatomical Region Laterality Modality Mammography 11/29/2023 12:1 0 PM EDT Narrative 12/29/2023 3:50 PM EDT This is a summary report. The complete report is available in the patient's medical record. If you cannot access the medical record, please contact the sending organization for a detailed fax or copy. SESSION: Separate. EXAMINATION: Bilateral digital mammograms with CAD and Tomosynthesis. TECHNIQUE: Bilateral full field digital mammography with synthesized (2D) the and Tomosynthesis (3-D) was performed using standard cc and MLO projections. Mammogram was interpreted in correlation with CAD and Tomosynthesis. INDICATION: Yearly screening. FINDINGS: Compared to 12/09/2022, 11/20/2021 and 10/30/2020. There are scattered areas of fibroglandular density. (Density B, 25% to less than 50%). There is no significant change in the appearance and distribution of benign fibroglandular as well as fibronodular densities in the both breasts. A few typically benign scattered calcifications as well as benign-appearing axillary lymph nodes are stable. No suspicious microcalcifications or masses are seen. CONCLUSION: Stable mammographic findings with no evidence of malignancy. RECOMMENDATION: Patient should continue with yearly screening mammography. NOTE: Patient has been informed about results of this screening mammogram, by a patient letter with 'plain language report'. BI-RADS Category 2: Benign findings. PQRI: 3342F. Report reviewed and signed by : Dr. Ramakrishna Gutierrez MD on 12/29/2023 3:50 PM. Workstation Name - [id number] Procedure Note Ramakrishna Gutierrez MD - 02/21/2024 This is a summary report. The complete report is available in thepatient's medical record. If you cannot access the medical record, pleasecontact the sending organization for a detailed fax or copy. SESSION: Separate. EXAMINATION: Bilateral digital mammograms with CAD and Tomosynthesis. TECHNIQUE: Bilateral full field digital mammography with synthesized (2D)the and Tomosynthesis (3-D) was performed using standard cc and MLOprojections. Mammogram was interpreted in correlation with CAD andTomosynthesis. INDICATION: Yearly screening. FINDINGS: Compared to 12/09/2022, 11/20/2021 and 10/30/2020. There are scattered areas of fibroglandular density. (Density B, 25% toless than 50%). There is no significant change in the appearance anddistribution of benign fibroglandular as well as fibronodular densities inthe both breasts. A few typically benign scattered calcifications as well asbenign-appearing axillary lymph nodes are stable. No suspiciousmicrocalcifications or masses are seen. CONCLUSION: Stable mammographic findings with no evidence of malignancy. RECOMMENDATION: Patient should continue with yearly screening mammography. NOTE: Patient has been informed about results of this screening mammogram,by a patient letter with 'plain language report'. BI-RADS Category 2: Benign findings. PQRI: 3342F. Report reviewed and signed by : Dr. Ramakrishna Gutierrez MD on 12/29/2023 3:50PM. Workstation Name - [id number] Kiki Cash MD IMG BI PROCEDURES Final Result * BONE DENSITY STUDY (04/18/2023 10:59 AM EST) Anatomical Region Laterality Modality Bone Densitometr y 03/22/2023 3:15 PM EST Narrative 04/18/2023 1:44 PM EST Bone density study Indication and risk factors: Postmenopausal female. ??Screening for osteoporosis. ??No priors. Study acquired on a SterraClimb densitometer. Imaging of the lumbar spine and hip was completed. FINDINGS: LUMBAR SPINE Averaged L1 through L4: Bone density: 1.32 g/cm2 Z score: 2.9 T score: 1.2 LEFT HIP Left total hip: Bone density: 1.05 g/cm2 Z score: 1.1 T score: 0.3 CONCLUSION: Bone density measures within normal limits. SESSION: Not applicable World Health Organization Definitions of Osteoporosis: T score at or below -1.0: Normal BMD T score between -1.0 and -2.5: Osteopenia T score at or below -2.5: Osteoporosis DEXA guidelines: Diagnosis : Treatment : Follow-up DEXA Normal BMD : Prevention : 2-3 years Osteopenia : Prevention/therapy :1-2 years Osteoporosis : Therapy : Yearly Report reviewed and signed by : Dr. Haydee Holloway on 04/18/2023 1:44 PM. Workstation Name - [id number] Procedure Note Haydee Holloway MD - 06/13/2023 Bone density study Indication and risk factors: Postmenopausal female. Screening forosteoporosis. No priors. Study acquired on a SterraClimb densitometer. Imaging of thelumbar spine and hip was completed. FINDINGS: LUMBAR SPINE Averaged L1 through L4: Bone density: 1.32 g/cm2 Z score: 2.9 T score: 1.2 LEFT HIP Left total hip: Bone density: 1.05 g/cm2 Z score: 1.1 T score: 0.3 CONCLUSION: Bone density measures within normal limits. SESSION: Not applicable World Health Organization Definitions of Osteoporosis: T score at or below -1.0: Normal BMD T score between -1.0 and -2.5: Osteopenia T score at or below -2.5: Osteoporosis DEXA guidelines: Diagnosis : Treatment : Follow-up DEXA Normal BMD : Prevention : 2-3 years Osteopenia : Prevention/therapy :1-2 years Osteoporosis : Therapy : Yearly Report reviewed and signed by : Dr. Haydee Holloway on 04/18/2023 1:44 PM.Workstation Name - [email or web address] Kiki Cash MD IMG DXA PROCEDURES Final Result * COLONOSCOPY (10/26/2016 9:40 AM EDT) Anatomical Region Laterality Modality Endoscopy Historical Provider GI~PROCEDURE ORDERABLES F inal Result from Last 3 Months or Most Recently Relevant to Health Maintenance Insurance [employer] - [place] MEDICARE [place]ANTAGE Care Teams Charging Board Operator Relationship Specialty Start Date End Date Kiki Cash MD PCP - General Perfect Bind Machine Operator 08/18/17
--- OUTSIDE RECORDS SUMMARY | 2024-09-20 12:03 | XMS_ITS | Encounter Summary ---
Author Organization [facility] Address [address] [place] [address] Care Team Providers Care Elementary Substitute Teacher Name Role Phone Kiki Cash MD Primary Care Provider [phone] Reason for Visit * Reason Onset Date Comments INFORMATION NEEDED 09/04/2024 Encounter Details Date Type Department Care Team (Late st Contact Info) Description 09/04/2024 Telephone Gastroenterology - [address] [place] [phone] Kiki Vallejo MD [address] [place] [phone] INFORMATION NEEDED Social History Tobacco Use Types Packs/Day Years Used Date Smoking Tobacco: Never Assessed Comments Unknown Sex and Gender Information Value Date Recorded Sex Assigned at Not on file Legal Sex Female 10:53 AM EST Gender Identity Not on file Sexual Orientation Not on file documented as of this encounter Progress Notes * Marsha Paulino - 09/18/2024 9:42 AM EDT INSURANCE REFERRAL RECEIVED AND PT IS BOOKED 10/11 * Chely Correa - 09/04/2024 4:30 PM EDT [place] [facility] [place] for consult for abdominal pain. Missing Insur. Referral. Faxed & placed in missing accordian documented in this encounter Plan of Treatment Upcoming Encounters Date Type Department Care Team (Late st Contact Info) Description 10/11/2024 2:10 PM EDT Consult Gastroenterology - [address] [place] [phone] Matthew Torres PA [address] [place] [address] documented as of this encounter Visit Diagnoses Not on filedocumented in this encounter Care Teams Elementary Substitute Teacher Relationship Specialty Start Date End Date Kiki Cash MD PCP - General Automation Test Engineer 08/18/17 documented as of this encounter
== END 2024-09-20 10:55 | disposition home or self-care (01) ==
LOC: HO.CT 10:54
PROVIDERS: PCP Internal Medicine; Visit Provider Internal Medicine
DX: R10.9 Unspecified abdominal pain (principal); K57.92 Diverticulitis of intestine, part unspecified, without perforation or abscess without bleeding
CPT/HCPCS: 74177

== ENCOUNTER → 2024-09-20 10:56 | Outpatient (BNV) | payer MEDICARE, SELFPAY | PROVIDERS: PCP Internal Medicine; Visit Provider Radiology Diagnostic Radiology | DX: R10.9 Unspecified abdominal pain (principal) | CPT/HCPCS: 74177 ==

== ENCOUNTER 2025-03-23 09:39 | Outpatient (REF) | payer MEDICARE, SELFPAY ==
[2025-03-23 11:38] LABS: MANUAL DIFF FLAG NO
[2025-03-23 11:53] LABS: Hematocrit 40.8 % (37.0-47.0); Hemoglobin 13.6 g/dl (12.0-16.0); Imm Gran Abs Auto 0.01 X10*3/uL (0.00-0.03); Imm Gran Pct Auto 0.2 % (0.0-0.4); Lymphocytes Absolute Auto 2.2 X10*3/uL (1.2-4.9); Mean Corpuscular HGB Conc 33.3 g/dl (31.0-35.0); Mean Corpuscular Hemoglobin 30.8 pg (27.0-33.0); Mean Corpuscular Volume 92.3 fL (80.0-98.0); NRBC Abs Auto 0.000 X10*3/uL (0.0-0.012); NRBC Pct Auto 0.0 /100WBC (0.0-0.2); Platelet Count 324 X10*3/uL (160-400); Red Blood Count 4.42 X10*6/uL (4.20-5.50); White Blood Count 5.2 X10*3/uL (4.8-10.8)
[2025-03-23 12:07] LABS: Alanine Aminotransferase 29 U/L (0-31); Albumin Level 4.7 g/dL (3.5-5.0); Alkaline Phosphatase 70 U/L (39-117); Anion Gap 13 (12-20); Aspartate Amino Transferase 36 U/L (5-31); Blood Urea Nitrogen 18 mg/dL (9-16); Calcium 10.0 mg/dL (8.4-10.2); Carbon Dioxide 26 mmol/L (22-29); Chloride 108 mmol/L (96-108); Cholesterol 206 mg/dL (<200); Estimated Glomerular Filt Rate > 60; HDL Cholesterol 72 mg/dL (>40); Potassium 5.2 mmol/L (3.3-5.1); Sodium 142 mmol/L (135-145); Total Protein 7.3 g/dL (6.5-8.0); Triglycerides 91 mg/dL (<150)
== END 2025-03-23 09:40 | disposition home or self-care (01) ==
LOC: HO.HMGCLDS 09:39
PROVIDERS: PCP Internal Medicine; Visit Provider Internal Medicine
DX: I10 Essential (primary) hypertension (principal); E78.5 Hyperlipidemia, unspecified
CPT/HCPCS: 36415; 80053; 80061; 85025

== ENCOUNTER 2025-03-26 11:02 | Outpatient (AMB) | payer MEDICARE, SELFPAY ==
[2025-03-26 11:09] VITALS: BP 126/70; PULSE 79; RESP 17; TEMP 36.6; O2SAT 98; BMI 25.4
--- NOTE | 2025-03-26 11:09 | A.OFFVIS_ITS ---
Intake Vital Signs 03/26/25 11:09 Height 5 ft 1.8 in Weight 138 lb BMI 25.4 BP 126/70 Blood Pressure Location Lt brachial Position Sitting Respiration 17 Pulse 79 Pulse Source Pulse Oximeter Temp 97.8 F Temp Source Oral Pulse Oximetry (%) 98 Oxygen Delivery Method Room Air Intake Visit Reasons: AWV G0438 Intake Note: Pt is here today for AWV. Allergies latex Allergy (Unknown, Verified 03/26/25 11:10) Swelling Medication List - Last Reconciled 03/26/25 by Kiki Cash MD cholecalciferol (vitamin D3) (Vitamin D3) 25 mcg PO DAILY dicyclomine 10 mg PO BID ibuprofen 600 mg PO Q6H PRN lisinopril 5 mg PO DAILY pravastatin 20 mg PO DAILY vitamin B complex 1 cap PO DAILY HPI AWV G0438 HPI Details Initiated the conversation about Advanced Directives. Advanced Directives help? patients prepare for current and future decisions about their medical treatment? and place of care. Discussed with patient that it is a process where a patients? current condition and prognosis are reviewed, their wishes for information? regarding their illness are elicited, and likely medical dilemmas are presented? and options discussed. The form can be amended as needed, reviewed yearly and? make changes as needed IPPE/AWV ? year old presents? for her ? Annual? Wellness Visit, initial visit.? Medical / Social History Reviewed? Past Medical History ?Yes? . ? [place]? of Care / Care Team list updated ?Yes . ? Surgical/Hospitalization? History ?Yes . ? Current Medications? (including OTC and supplements) ?Yes . ? Family History ?Yes? . ? Tobacco? Control form ?Yes . ? AUDIT-C (Alcohol use) form? ?Yes . ? Illicit drug use in Social? History ?Yes . ? Current diagnosis of? depression? ?No ? Appropriate PHQ2/PHQ9? completed ?Yes . ? Data entered by ?Medical? Outsole Cementer and reviewed by provider ? Fall Risk ? Fall? History? Have you had any falls with? injury in the past year? ?No . ? Have you had two or more? falls in the past year? ?No . ? Fall Risk Assessment: ?No? falls in the past year . ? HRA filled out by? the patient, reviewed by Provider and scanned. ? IPPE/AWV ? Balance? [place]? ?Yes . ? Tandem? walk ?Yes . ? Walk and? Turn ?Yes . ? Rise from? sit to stand ?Yes . ?Vision? Corrective? lens ?Yes ? Vision? screen ? Up-to-date, has an appointment [] for vision? screening and glaucoma screening ?Hearing? Whisper? test ?pass .? Initiated the conversation about Advanced Directives. Advanced Directives help? patients prepare for current and future decisions about their medical treatment? and place of care. Discussed with patient that it is a process where a patients? current condition and prognosis are reviewed, their wishes for information? regarding their illness are elicited, and likely medical dilemmas are presented? and options discussed. The form can be amended as needed, reviewed yearly and? make changes as needed Written? Plan?Completed. See Patient? Documents. [facility] Medical History (Updated 03/26/25 @ 15:15 by Kiki Cash MD) Vitamin D deficiency Gallstones Normal colonoscopy Normal Pap smear Abdominal pain Hx of diagnostic mammography Endometriosis Hyperlipidemia HTN (hypertension) Surgical History History of appendectomy H/O colonoscopy Family History Father Colon cancer Social History Housing: House Are you a primary careers counsellor to a significant other at home: No Do you presently have visiting nurse or other home services: No Alcohol intake: current Alcohol intake frequency: other Patient Tobacco Use Status: Never used Tobacco e-Cigarette/Vaping Use: Never Used service: No Current occupational status: retired Cognitive needs: No Hearing needs: No Vision needs: Yes Questionnaire Medicare Wellness Checkup What [age] 65-70 What gender do you identify with?: female During the past 4 weeks, how much have you been bothered by emotional problems such as feeling anxious, depressed, irritable, sad or downhearted, and blue?: not at all During the past 4 weeks, has your physical & emotional health limited your social activities with family, friends, neighbors, or groups?: not at all During the past 4 weeks, how much bodily pain have you generally had?: no pain During the past 4 weeks, was someone available to help you if you needed & wanted help?: yes, as much as I wanted During the past 4 weeks, what was the hardest physical activity you could do for at least 2 minutes?: very heavy Can you get to places out of walking distance without help? (For eg., can you travel alone on buses, taxis or drive your car?): Yes Can you go shopping for groceries or clothes without someone's help?: Yes Can you prepare your own meals?: Yes Can you do your housework without help?: Yes Because of any health problems, do you need the help of another person with your personal care needs such as eating, bathing, dressing or getting around the house?: No Can you handle your own money without help?: Yes During the past 4 weeks, how would you rate your health in general?: excellent During the past 4 weeks how have things been going for you?: very well; could hardly better Are you having difficulties driving your car?: no Do you always fasten your seat belt when you are in a car?: yes, usually During past 4 weeks, have you been bothered by the following: never: Falling or dizzy when standing up, Sexual problems?, Trouble eating well?, Teeth or denture problems?, Problems using the telephone? and Tiredness or fatigue? Have you fallen 2 or more times in the past year?: No Are you afraid of falling?: No Are you a smoker?: no During the past 4 weeks, how many drinks of wine, beer, or other alcoholic beverages did you have?: no alcohol at all Do you exercise for about 20 minutes 3 or more times a week?: no, I usually do not exercise this much Have you been given information to help with the following?: yes: Hazards in your house that might hurt you? and yes: Keeping track of your medications? How often do you have trouble taking medicines the way you have been told to take them?: I always take medicine as prescribed How confident are you that you can control & manage most of your health problems?: very confident What is your race?: White Mini Mental State Exam (MMSE) Orientation What is the (year) (season) (date) (day) (month)?: year, season, date, day and month Where are we (state) (county) (town or city) (hospital) (floor)?: state, county, town or city, hospital/clinic and floor Registration Name of 3 unrelated objects clearly and slowly, then ask patient to repeat all 3 of them. (1st repeat determines score. Make sure they can repeat all three): object 1, object 2 and object 3 Attention & Calculation (CHOOSE ONE) Spell WORLD backwards (DLROW): 5 letters Recall Ask patient to repeat the 3 items from question #3.: object 1, object 2 and object 3 Language Show patient a wristwatch & ask what it is. Repeat for pencil.: watch and pencil Ask the patient to repeat the phrase 'No ifs, ands, or buts' after you.: correct Ask the patient to 'take a piece of paper with their right hand' 'fold paper in half' 'place paper on floor': take paper in right hand, fold paper in half and place paper on floor Print the sentence 'CLOSE YOUR EYES' on a piece. If patient actually closes eyes then score.: followed written direction Give patient a blank piece of paper & ask to write a sentence. Score if it contains a noun & verb.: sentence contains subject and verb Score Score: 29 PHQ-9 Over the last 2 weeks, how often have you been bothered by any of the following problems? 1. Little interest or pleasure in doing things: not at all 2. Feeling down, depressed, or hopeless: not at all 3. Trouble falling or staying asleep, or sleeping too much: not at all 4. Feeling tired or having little energy: not at all 5. Poor appetite or overeating: several days 6. Feeling bad about yourself - or that you are a failure or have let yourself or your family down: not at all 7. Trouble concentrating on things, such as reading the newspaper or watching television: not at all 8. Moving or speaking so slowly that other people could have noticed. Or the opposite - being so fidgety or restless that you have been moving around a lot more than usual: not at all 9. Thoughts that you would be better off or of hurting yourself in some way: not at all Total score: 1 Depression Screening Interpretation: Negative Depression Screening Done: Yes Source: Developed by Drs. Alok Guo, Adela Fleming, Kenneth Prescott and colleagues, with an educational donal from [employer]. Review of Systems Const All systems reviewed & are unremarkable except as noted in HPI and below Eyes Reports no additional complaints ENT Reports no additional complaints Card Reports no additional complaints Resp Reports no additional complaints GI Reports no additional complaints Reports no additional complaints Musc Reports no additional complaints Physical Exam Vital Signs: Last Vital Signs Temp 97.8 F 03/26/25 11:09 Pulse 79 03/26/25 11:09 Resp 17 03/26/25 11:09 BP 126/70 03/26/25 11:09 Pulse Ox 98 03/26/25 11:09 Oxygen Delivery Method Room Air 03/26/25 11:09 BMI result Body Mass Index 25.4 Const General: no acute distress HEENT Head: Yes normal to inspection Ears: hearing grossly normal bilaterally Eyes General: appearance normal, both eyes and all related structures Resp Effort & Inspection: normal respiratory effort Auscultation: clear to auscultation bilaterally Cardio Rhythm: regular rhythm Heart sounds: S1 normal heart sound present and S2 normal heart sound present GI Inspection: Yes normal to inspection Palpation (GI): Soft to palpation Percussion: Yes normal to percussion Auscultation: normal bowel sounds Extrem General: Yes normal to inspection Assessment & Plan Assessment & Plan (1) Essential hypertension: Code(s): I10 - Essential (primary) hypertension Plan: Continue Lisinopril (2) Annual physical exam: Code(s): Z00.00 - Encounter for general adult medical examination without abnormal findings Plan: Well-balanced diet regular physical activity discussed with the patient she is up-to-date with the mammogram and colonoscopy Orders: Orders Lipid Panel 1 Year E55.9 - Vitamin D deficiency, unspecified, E78.5 - Hyperlipidemia, unspecified, I10 - Essential (primary) hypertension, Z00.00 - Encounter for general adult medical examination without abnormal findings TSH reflex Free T4 1 Year E55.9 - Vitamin D deficiency, unspecified, E78.5 - Hyperlipidemia, unspecified, I10 - Essential (primary) hypertension, Z00.00 - Encounter for general adult medical examination without abnormal findings UA w Microscopic 1 Year E55.9 - Vitamin D deficiency, unspecified, E78.5 - Hyperlipidemia, unspecified, I10 - Essential (primary) hypertension, Z00.00 - Encounter for general adult medical examination without abnormal findings MM screening mammo BI Today Z12.31 - Encounter for screening mammogram for malignant neoplasm of breast Basic Metabolic Panel 1 Month I10 - Essential (primary) hypertension Comprehensive [place]. Panel Fast 1 Year E55.9 - Vitamin D deficiency, unspecified, E78.5 - Hyperlipidemia, unspecified, I10 - Essential (primary) hypertension, Z00.00 - Encounter for general adult medical examination without abnormal findings Complete Blood Count Auto Diff 1 Year E55.9 - Vitamin D deficiency, unspecified, E78.5 - Hyperlipidemia, unspecified, I10 - Essential (primary) hypertension, Z00.00 - Encounter for general adult medical examination without abnormal findings Vitamin D 25-OH Total 1 Year E55.9 - Vitamin D deficiency, unspecified, E78.5 - Hyperlipidemia, unspecified, I10 - Essential (primary) hypertension, Z00.00 - Encounter for general adult medical examination without abnormal findings Medications: Refilled dicyclomine 10 mg PO BID 180 caps 3RF lisinopril 5 mg PO DAILY 90 tabs 3RF pravastatin 20 mg PO DAILY 90 tabs 3RF Quality Reporting (2019) Depression/Bipolar (159/160/161/177) PHQ-9: Total score: 1 Coding Level of Care Code Medicare Subsequent (G0439) Diagnoses Essential hypertension I10 Annual physical exam Z00.00 CPT Codes Advance Care Planning - Advance Care Planning discussion: On file, no changes ([id number]) Advance Care Planning - Time spent: 1-15 minutes, on File ([id number]) Advance Care Planning Advance Care Planning discussion: On file, no changes Forms completed: Health Care Proxy Time spent: 1-15 minutes, on File
--- OUTSIDE RECORDS SUMMARY | 2025-03-27 01:16 | XMS_ITS | Clinical Summary ---
Author Organization [facility] Address [address] [place] [address] Care Team Providers Care Science Manager Name Role Phone Kiki Cash MD Primary Care Provider [phone] Allergies No known active allergies Immunizations Name [...] - PCV) 2021 COVID-19 Vaccine ( season) 2025 08/29/2020, 08/08/2020 Influenza Vaccine (#1) 2025 Osteoporosis Screening (DEXA Scan) 04/18/2025 04/18/2023 Breast [...] age to complete this topic Care Teams Science Manager Relationship Specialty Start Date End Date Kiki Cash MD [address] [place] [address] PCP - General Traffic Sign Erection Supervisor 08/18/17
--- OUTSIDE RECORDS SUMMARY | 2025-03-27 01:16 | XMS_ITS | Clinical Summary ---
Author Organization [facility] [address] [facility] Address [address] [place] [address] Phone Care Team Providers Care Die Casting Machine Operator Name Role Phone Kiki Cash MD Primary Care Provider [phone] Allergies No known active allergies Medications pravastatin (PRAVACHOL) 20 mg tablet Take 1 tablet (20 mg total) by mouth 1 (one) time each day. 5 Active lisinopriL (PRINIVIL,ZESTR IL) 5 mg tablet Take 1 tablet (5 mg total) by mouth 1 (one) time each day. 5 Active dicyclomine (BENTYL) 10 mg capsuleIndicati ons:Diarrhea, unspecified type,Left lateral abdominal pain Take 1 capsule (10 mg total) by mouth 2 (two) times a day. 180 each 3 5 10/12/19 26 Active bisacodyL (DULCOLAX) 5 mg EC tablet Take 2 tablets by mouth right before beginning bowel prep. See instructions provided by the office 2 tablet 5 Active polyethylene glycol (Golytely) 236-22.74-6.74 -5.86 gram solution Take 4L by mouth once for one dose. May substitue any PEG. Starting at 6PM the night before your procedure drink 1 8oz glasses at your own pace until you complete half of the gallon. Finish 2nd half of the gallon 5 hours before your procedure. 4000 mL 5 Active Surgical History Surgery Date Site/Laterality Comments APPENDECTOMY COLONOSCOPY 10/07/2016 - 11/05/[address] Vallejo OTHER SURGICAL HISTORY emergent Medical History Medical History Date Comments Vitamin D deficiency History of ectopic Gallstones Abdominal pain Endometriosis Hyperlipidemia Hypertension Family History Medical History Relation Name Comments Colon cancer Father Colon cancer Other NEPHEWMATERNAL BRCA 1/2 Neg Hx Breast cancer Neg Hx Cancer Neg Hx Endometrial cancer Neg Hx Ovarian cancer Neg Hx Relation Name Status Comments Father Other Social History Tobacco Use Types Packs/Day Years Used Date Smoking Tobacco: Former Cigarettes Smokeless Tobacco: Never Alcohol Use Standard Drinks/Week Comments Yes 1 (1 standard drink = 0.6 oz pur e alcohol) Interpersonal Safety Answer Date Record ed Physical Abuse Unrecognized value 11/08/2024 Verbal Abuse Unrecognized value 11/08/2024 Comments Unknown Sex and Gender Information Value Date Recorded Sex Assigned at Not on file Legal Sex Female 10:53 AM EST Gender Identity Not on file Sexual Orientation Not on file Obstetrics History Last Filed Vital Signs Vital Sign Reading Time Taken Comments Blood Pressure 145/70 11/08/2024 4:37 PM EDT Pulse 59 11/08/2024 4:37 PM EDT Temperature 36.3 C (97.4 F) 11/08/2024 3:31 PM EDT Respiratory Rate 15 11/08/2024 4:37 PM EDT Oxygen Saturation 99% 11/08/2024 4:37 PM EDT Inhaled Oxygen Concentration - - Weight 62.1 kg (137 lb) 11/01/2024 2:00 PM EDT Height 154.9 cm (5' 1 ) 11/01/2024 2:00 PM EDT Body Mass Index 25.89 11/01/2024 2:00 PM EDT Plan of Treatment Health Maintenance Due Date Last Done Comments Zoster Vaccines (1 of 2) 2006 Hepatitis C Screening 04/06/2022 Medicare Annual Wellness Visit 04/06/2022 Social Influencers of Health Screening 04/06/2022 Depression Screening 05/09/2024 COVID-19 Vaccine ( season) 2025 05/20/2021, 08/29/2020, 08/08/2020 Influenza Vaccine (#1) 2025 Falls Risk Assessment 11/08/2025 11/08/2024 Breast Cancer Screening 12/22/2025 12/23/19 24, 12/09/2022, 11/20/2021, Additional history exists DTaP,Tdap,and Td Vaccines (2 - Td or Tdap) 01/12/2027 01/12/2017 RSV Immunization Adult Patients (1 - 1-dose 75+ series) 11/08/2031 Osteoporosis Screening (Bone Density Screening) 04/18/2033 04/18/2023 Colorectal Cancer Screening: Colonoscopy 11/08/2034 11/08/2024, 10/26/2016 Pneumococcal Vaccine: 50+ Years Completed 03/15/2023 HIB Vaccines Aged Out No longer eligi [...] Procedure Name Priority Date/Time Associated Diagnosis Comments COLONOSCOPY Routine 11/08/2024 4:16 PM EDT Diarrhea, unspecified type Constipation, unspecified constipation type Family history of colon cancer in father MAMMOGRAM SCREENING BILATERAL 3D ROBERTA WITH CAD Routine 12/23/2023 11:50 AM EDT Encounter for screening mammogram for malignant neoplasm of breast BONE DENSITY STUDY Routine 04/18/2023 10 :59 AM EST Encounter for screening for osteoporosis Asymptomatic menopausal state from Last 3 Months or Most Recently Relevant to Health Maintenance Results * COLONOSCOPY Anesthesia - MAC; SP ENDOSCOPY (11/08/2024 4:16 PM EDT) Anatomical Region Laterality Modality Endoscopy 11/08/2024 3:50 PM EDT Impressions 11/08/2024 4:17 PM EDT - The examined portion of the ileum was normal. - Internal hemorrhoids. - The entire examined colon is normal. - No specimens collected. Recommendation: - Repeat colonoscopy in 10 years for screening purposes. Narrative 11/08/2024 4:[address] [facility] Patient Name: Benita Salomon Procedure Date: 11/08/2024 3:50 PM Date of : 1955 Age: 69 Gender: Female Note Status: Finalized Attending MD: Kiki Vallejo MD, Procedure Date No Time: 11/08/2024 Procedure: Colonoscopy Indications: Change in bowel habits Providers: Kiki Vallejo MD Referring MD: Kiki Cash MD Medicines: Propofol per Anesthesia Complications: No immediate complications. Estimated Blood Loss: Estimated blood loss: none. Procedure: Pre-Anesthesia Assessment: - ASA Grade Assessment: II - A patient with mild systemic disease. After I obtained informed consent, the scope was passed under direct vision. Throughout the procedure, the patient's blood pressure, pulse, and oxygen saturations were monitored continuously.The Olympus Pediatric Colonoscope was introduced through the anus and advanced to the terminal ileum. The colonoscopy was somewhat difficult due to restricted mobility of the colon. Successful completion of the procedure was aided by applying abdominal pressure. The patient tolerated the procedure well. The quality of the bowel preparation was good. Findings: The perianal and digital rectal examinations were normal. The terminal ileum appeared normal. Internal hemorrhoids were found during retroflexion. The hemorrhoids were Grade I (internal hemorrhoids that do not prolapse). The entire examined colon appeared normal. Procedure Code(s): --- Professional --- 84173, Colonoscopy, flexible; diagnostic, including collection of specimen(s) by brushing or washing, when performed (separate procedure) Diagnosis Code(s): --- Professional --- K64.0, First degree hemorrhoids R19.4, Change in bowel habit CPT copyright 2020 [employer]. All rights reserved. The codes documented in this report are preliminary and upon interlocking machine operator review may be revised to meet current compliance requirements. Kiki Vallejo MD 11/08/2024 4:17:16 PM This report has been signed electronically.Kiki Vallejo MD Number of Addenda: 0 Note Initiated On: 11/08/2024 3:50 PM Scope In: Scope Out: Endoscopy Department at [facility] - [address] [place] [id number] Procedure Note Kiki Vallejo MD - 11/08/2024 [facility] Patient Name: Benita Salomon Procedure Date: 11/08/2024 3:50 PM Date of : 1955 Age: 69 Gender: Female Note Status: Finalized Attending MD: Kiki Vallejo MD, Procedure Date No Time: 11/08/2024 Procedure: Colonoscopy Indications: Change in bowel habits Providers: Kiki Vallejo MD Referring MD: Kiki Cash MD Medicines: Propofol per Anesthesia Complications: No immediate complications. Estimated Blood Loss: Estimated blood loss: none. Procedure: Pre-Anesthesia Assessment: - ASA Grade Assessment: II - A patient with mild systemic disease. After I obtained informed consent, the scope was passed under direct vision. Throughout theprocedure, the patient's blood pressure, pulse, and oxygen saturations were monitored continuously.The Olympus Pediatric Colonoscope was introduced through theanus and advanced to the terminal ileum. The colonoscopy was somewhat difficult due to restricted mobilityof the colon. Successful completion of the procedurewas aided by applying abdominal pressure. The patient tolerated the procedure well. The quality of thebowel preparation was good. Findings: The perianal and digital rectal examinations were normal. The terminal ileum appeared normal. Internal hemorrhoids were found duringretroflexion. The hemorrhoids were Grade I (internal hemorrhoids that do not prolapse). The entire examined colon appeared normal. Procedure Code(s): --- Professional --- 73999, Colonoscopy, flexible; diagnostic, including collection of specimen(s) by brushing or washing,when performed (separate procedure) Diagnosis Code(s): --- Professional --- K64.0, First degree hemorrhoids R19.4, Change in bowel habit CPT copyright 2020 [employer]. All rights reserved. The codes documented in this report are preliminary and upon interlocking machine operator reviewmay be revised to meet current compliance requirements. Kiki Vallejo MD 11/08/2024 4:17:16 PM This report has been signed electronically.Kiki Vallejo MD Number of Addenda: 0 Note Initiated On: 11/08/2024 3:50 PM Scope In: Scope Out: Endoscopy Department at [facility] - [address] [place] [phone] IMPRESSION: - The examined portion of the ileum was normal. - Internal hemorrhoids. - The entire examined colon is normal. - No specimens collected. Recommendation: - Repeat colonoscopy in 10 years for screening purposes. us Kiki Vallejo MD GI~PROCEDURE ORDERABLES Final Result * MAMMOGRAM SCREENING BILATERAL 3D ROBERTA WITH [...] on 12/29/2023 3:50 PM. Workstation Name - [id number] Procedure Note Ramakrishna Gutierrez MD - 02/21/2024 [...] MD on 12/29/2023 3:50PM. Workstation Name - [id number] us Kiki Cash MD IMG BI PROCEDURES Final Resul t * BONE DENSITY STUDY (04/18/2023 10:59 AM EST) Anatomical Region Laterality Modality Bone Densitometr y 03/22/2023 3:15 PM EST Narrative 04/18/2023 1:44 PM EST Bone density study Indication and risk factors: Postmenopausal female. Screening for osteoporosis. No priors. Study acquired on a [employer] densitometer. Imaging of the lumbar spine and [...] on 04/18/2023 1:44 PM. Workstation Name - [employer] Procedure Note Haydee Holloway MD - 06/13/2023 Bone density study Indication and risk factors: Postmenopausal female. Screening forosteoporosis. No priors. Study acquired on a [employer] densitometer. Imaging of thelumbar spine and hip [...] Holloway on 04/18/2023 1:44 PM.Workstation Name - [employer] Kiki Cash MD IM DXA PROCEDURES Final Resu lt from Last 3 Months or Most Recently Relevant to Health Maintenance Insurance [employer] - [place] MEDICARE ADVANTAGE Care Teams Die Casting Machine Operator Relationship Specialty Start Date End Date Kiki Cash MD PCP - General Wire Drawing Machine Operator 08/18/17
== END 2025-03-26 12:51 | disposition home or self-care (01) ==
LOC: HO.HMCC 11:03
PROVIDERS: PCP Internal Medicine; Visit Provider Internal Medicine
DX: Z00.00 Encounter for general adult medical examination without abnormal findings (principal); I10 Essential (primary) hypertension

== ENCOUNTER 2025-04-17 10:42 | Outpatient (REF) | payer MEDICARE, SELFPAY ==
--- NOTE | ~2025-04-17 | MM_ITS ---
EXAMINATION: MM SCREENING DIGITAL BREAST TOMOSYNTHESIS, BILATERAL CLINICAL INFORMATION: Screening. Asymptomatic. COMPARISON: Mammography: Comparison is made with available priors TECHNIQUE: Digital breast mammography with tomosynthesis is performed in both the craniocaudal and mediolateral oblique views along with computer-aided detection (CAD). FINDINGS: There are scattered areas of fibroglandular density. There are no significant masses, abnormal calcifications, or other abnormalities. MM/MM tomosynthesis screening BI IMPRESSION: No mammographic evidence of malignancy. ASSESSMENT: BI-RADS Category 1: Negative RECOMMENDATION: Routine annual mammography screening. 1 year F/U This examination should not preclude the clinical evaluation of a suspicious palpable abnormality. This patient's information was entered into a reminder system with a target due date for their next mammogram. Electronically signed by: Tesha Lezama DO 04/19/2025 08:37 AM [facility]
== END 2025-04-17 10:43 | disposition home or self-care (01) ==
LOC: HO.MAMMO 10:42
PROVIDERS: PCP Internal Medicine; Visit Provider Internal Medicine
DX: Z12.31 Encounter for screening mammogram for malignant neoplasm of breast (principal)
CPT/HCPCS: 77063; 77067

== ENCOUNTER → 2025-04-17 10:44 | Outpatient (BNV) | payer MEDICARE, SELFPAY | PROVIDERS: PCP Internal Medicine; Visit Provider Internal Medicine | DX: Z12.31 Encounter for screening mammogram for malignant neoplasm of breast (principal) | CPT/HCPCS: 77063; 77067 ==